=== PATIENT | female | born 1975 | race Caucasian/White ===

== ENCOUNTER 2016-04-30 16:35 | Inpatient (IN) | payer OTHER ==
[2016-04-30] MEDS ORDERED: SODIUM CHLORIDE 0.9% 2,000 ML IV STA (16:53)
[2016-04-30] MEDS ORDERED: KETOROLAC 30 MG/ML 1 ML VIAL IVP STA ×2 (16:55→18:24)
[2016-04-30] MEDS ORDERED: METOCLOPRAMIDE 5 MG/ML 2 ML VIAL IVP STA ×2 (16:55→18:24)
--- NOTE | 2016-04-30 16:57 | ED ---
Recheck HPI - General Chief Complaint: Recheck/Abnormal Lab/Rx Stated Complaint: DKA - Fall Time Seen by Provider: 04/30/16 16:46 Source: patient, RN notes reviewed Mode of arrival: wheelchair - History of Present Illness Initial Comments: 41-year-old female presents to the emergency department with a chief complaint of hyperglycemia. Patient states that her sugars have been in 3 or 400 for the past few days. Patient states she's having some left-sided flank pain with this. Patient states she feels very dehydrated as well. Patient states she's had a little bit of nausea with this as well. Patient seen changes in urination. Patient states that she was concerned due to the high sugars and she thinks she may be in DKA. Patient states she has been in and out of DKA many times. Patient states they have been trying insulin at home but they cannot seem to bring her glucose down. The patient and family deny any other symptoms at this time. Patient denies any recent fever, chills, shortness of breath, chest pain, back pain, abdominal pain, vomiting, numbness or tingling, dysuria or hematuria, constipation or diarrhea, headaches or visual changes, or any other current symptoms. - Related Data Home Medications Medication Instructions Recorded Confirmed HYDROcodone/APAP 10-325MG [[place] 1 tab PO Q4HR PRN 12/26/15 04/30/16 10-325] Insulin Aspart [NovoLOG] See Protocol SQ AC-TID 12/26/15 04/30/16 metFORMIN HCL 1,000 mg PO BID 12/26/15 04/30/16 traZODone HCL [Desyrel] 100 mg PO HS 12/26/15 04/30/16 ALPRAZolam [Xanax] 2 mg PO BID PRN 04/19/16 04/30/16 DULoxetine HCL [Cymbalta] 60 mg PO DAILY 04/19/16 04/30/16 Gabapentin [Neurontin] 900 mg PO BID 04/19/16 04/30/16 Insulin Detemir [Levemir] 30 unit SQ HS 04/19/16 04/30/16 Cyanocobalamin [Vitamin B-12] 500 mcg PO DAILY 04/30/16 04/30/16 Hydrocortisone Suppository 25 mg RECTAL DAILY 04/30/16 04/30/16 [Anusol-Hc] Liraglutide [Victoza 2-Jay] 1.2 mg SQ DAILY 04/30/16 04/30/16 Minocycline [Minocin] 100 mg PO DAILY 04/30/16 04/30/16 Mupirocin 2% Oint [Bactroban 2% 1 applic TOPICAL TID 04/30/16 04/30/16 Oint] Naproxen [Naprosyn] 500 mg PO Q12HR 04/30/16 04/30/16 Omeprazole 40 mg PO DAILY 04/30/16 04/30/16 clonazePAM [KlonoPIN] 2 mg PO BID 04/30/16 04/30/16 fentaNYL 25MCG/HR PATCH [Duragesic 1 patch TRANSDERM Q72H PRN 04/30/16 04/30/16 25MCG/HR] oxyCODONE-APAP 10-325MG [Percocet 1 tab PO Q4H PRN 04/30/16 04/30/16 10-325 mg] Allergies Allergy/AdvReac Type Severity Reaction Status Date / Time venom-honey bee Allergy Anaphylaxis Verified 04/30/16 17:22 erythromycin base AdvReac Rash/Hives Verified 04/30/16 17:22 Penicillins AdvReac Rash/Hives Verified 04/30/16 17:22 Review of Systems ROS Statement: Those systems with pertinent positive or pertinent negative responses have been documented in the HPI. ROS Other: All systems not noted in ROS Statement are negative. 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 She is normally independent. She is a . Smoking Status: Former smoker Past Alcohol Use History: None Reported Additional Past Alcohol Use History / Comment(s): Pt states she only smoked for a couple years [id number]. Past Drug Use History: None Reported - Past Family History Mother Family Medical History: No Reported History Additional Family Medical History / Comment(s): Mother is healthy and is 70yrs old. Father Family Medical History: CVA/TIA Additional Family Medical History / Comment(s): Father had an dental infection that affected his heart and then caused a CVA. General Exam - General Exam Comments Initial Comments: General: The patient is awake and alert, in no distress, and does not appear acutely ill. Eye: Pupils are equal, round and reactive to light, extra-ocular movements are intact; there is normal conjunctiva bilaterally. No signs of icterus. Ears, nose, mouth and throat: There are moist mucous membranes. Neck: The neck is supple, there is no tenderness. Cardiovascular: There is a regular rate and rhythm. No murmur, rub or gallop is appreciated. Respiratory: Lungs are clear to auscultation, respirations are non-labored, breath sounds are equal. No wheezes, stridor, rales, or rhonchi. Gastrointestinal: Soft, non-distended, non-tender abdomen without masses or organomegaly noted. There is no rebound or guarding present. No CVA tenderness. Bowel sounds are unremarkable. Back: There is no tenderness to palpation in the midline. There is no obvious deformity. No rashes noted. Musculoskeletal: Normal ROM, no tenderness, There is no pedal edema. There is no calf tenderness or swelling. Sensation intact. Pulses equal bilaterally 2+. Neurological: CN II-XII intact, There are no obvious motor or sensory deficits. Coordination appears grossly intact. Speech is normal. Skin: Skin is warm and dry and no rashes or lesions are noted. Psychiatric: Cooperative, appropriate mood & affect, normal judgment. Course Vital Signs 04/30/16 16:38 Temperature 99.4 F Pulse Rate 124 H Respiratory 22 Rate Blood Pressure 123/73 O2 Sat by Pulse 99 Oximetry Medical Decision Making - Medical Decision Making 41-year-old female presents to the emergency department with a chief complaint of hyperglycemia. At this time patient is found to be acetone positive an elevated gap of 24. At this time we will admit the patient. We'll start the insulin protocol on the patient. We did discuss this with the patient and she is in agreement with the plan. Patient does have an elevated However her glucose is low most likely from the insulin family did give outpatient we. We did discuss that we will be starting D5 on the patient and we will start of a lower insulin drip rate to care for the patient's CK. The patient and family are in agreement with the plan. - Lab Data Result diagrams: 04/30/16 17:55 04/30/16 17:55 Lab Results 04/30/16 04/30/16 04/30/16 Range/Units 17:55 17:55 17:55 WBC 9.6 (3.8-10.6) k/uL RBC 5.46 H (3.80-5.40) m/uL Hgb 14.0 (11.4-16.0) gm/dL Hct 45.3 (34.0-46.0) % MCV 83.0 (80.0-100.0) fL MCH 25.7 (25.0-35.0) pg MCHC 30.9 L (31.0-37.0) g/dL RDW 14.5 (11.5-15.5) % Plt Count 439 (150-450) k/uL Neutrophils % 76 % Lymphocytes % 13 % Monocytes % 9 % Eosinophils % 0 % Basophils % 0 % Neutrophils # 7.3 (1.3-7.7) k/uL Lymphocytes # 1.3 (1.0-4.8) k/uL Monocytes # 0.8 (0-1.0) k/uL Eosinophils # 0.0 (0-0.7) k/uL Basophils # 0.0 (0-0.2) k/uL Hypochromasia Moderate Poikilocytosis Slight Sodium 139 (137-145) mmol/L Potassium 4.5 (3.5-5.1) mmol/L Chloride 106 (98-107) mmol/L Carbon Dioxide 9 L* (22-30) mmol/L Anion Gap 24 mmol/L BUN 20 H (7-17) mg/dL Creatinine 0.52 (0.52-1.04) mg/dL Est GFR (MDRD) Af Amer >60 (>60 ml/min/1.73 sqM) Est GFR (MDRD) Non-Af >60 (>60 ml/min/1.73 sqM) Glucose 281 H (74-99) mg/dL Plasma Lactic Acid [place] 1.2 (0.7-2.0) mmol/L Calcium 9.6 (8.4-10.2) mg/dL Phosphorus 1.7 L (2.5-4.5) mg/dL Magnesium 2.2 (1.6-2.3) mg/dL Total Bilirubin 0.9 (0.2-1.3) mg/dL AST 22 (14-36) U/L ALT 30 (9-52) U/L Alkaline Phosphatase 97 (38-126) U/L Total Protein 8.4 H (6.3-8.2) g/dL Albumin 5.0 (3.5-5.0) g/dL Lipase 515 H (23-300) U/L Acetone, Qual Positive (Negative) Disposition Clinical Impression: DKA (diabetic ketoacidoses), Diabetes mellitus type 1 Disposition: ADMITTED IP TO THIS [facility] Condition: Stable Time of Disposition: 18:46 Decision Date: 04/30/16 Decision Time: 18:46
[2016-04-30 18:11] LABS: Basophils % (A) 0 %; CH 26.7; CHCM 32.4; Eosinophils % (A) 0 %; HCT 45.3 % (34.0-46.0); HDW 3.81; Hypochromasia Moderate; Luc % (Auto) 2; Lymphocytes # (A) 1.3 k/uL (1.0-4.8); Lymphocytes % (A) 13 %; MCH 25.7 pg (25.0-35.0); MCHC 30.9 g/dL (31.0-37.0); Mean Platelet Volume 7.1; Monocytes # (A) 0.8 k/uL (0-1.0); Monocytes % (A) 9 %; Neutrophils # (A) 7.3 k/uL (1.3-7.7); Neutrophils % (A) 76 %; Poikilocytosis Slight; RBC 5.46 m/uL (3.80-5.40); RDW 14.5 % (11.5-15.5); WBC 9.6 k/uL (3.8-10.6); WBC (Perox) 8.82
[2016-04-30 18:19] LABS: ALT 30 U/L (9-52); AST 22 U/L (14-36); Alkaline Phosphatase 97 U/L (38-126); Anion Gap 24 mmol/L; Blood Urea Nitrogen 20 mg/dL (7-17); Calcium 9.6 mg/dL (8.4-10.2); Chloride 106 mmol/L (98-107); Glucose 281 mg/dL (74-99); Magnesium 2.2 mg/dL (1.6-2.3); Non-African American GFR(MDRD) >60 (>60 ml/min/1.73 sqM); Phosphorous 1.7 mg/dL (2.5-4.5); Potassium 4.5 mmol/L (3.5-5.1); Sodium 139 mmol/L (137-145); Total Bilirubin 0.9 mg/dL (0.2-1.3); Total Protein 8.4 g/dL (6.3-8.2)
[2016-04-30 18:22] LABS: Carbon Dioxide 9 mmol/L (22-30)
[2016-04-30] MEDS ORDERED: ALPRAZolam 0.5 MG TAB PO PRN (18:36)
[2016-04-30] MEDS ORDERED: HYDROcodone/APAP 10-325MG 1 EACH TAB PO PRN (18:36)
[2016-04-30] MEDS ORDERED: INSULIN REGULAR 100 UNIT in SODIUM CHLORIDE 0.9% 100 ML IV SCH ×4 (18:45)
[2016-04-30] MEDS: SODIUM CHLORIDE 0.9% 1,000 ML IV SCH ×2 (19:06→21:53)
[2016-04-30 20:39] LABS: Glucose,Whole Blood 248 mg/dL (75-99)
[2016-04-30] MEDS: MUPIROCIN 2% OINT 22 GM TUBE TOPICAL SCH (21:13)
[2016-04-30] MEDS: D5-0.45% NACL WITH KCL 20MEQ/L 1,000 ML IV SCH (21:13)
[2016-04-30] MEDS: traZODone HCL 100 MG TAB PO SCH (21:14)
[2016-04-30] MEDS: metFORMIN 500 MG TAB PO SCH (21:14)
[2016-04-30] MEDS: GABAPENTIN 300 MG CAP PO SCH (21:15)
[2016-04-30] MEDS: NAPROXEN 250 MG TAB PO SCH (21:15)
[2016-04-30 21:45] LABS: Glucose,Whole Blood 245 mg/dL (75-99)
[2016-04-30] MEDS: clonazePAM 1 MG TAB PO SCH (21:51)
[2016-04-30] MEDS: oxyCODONE-APAP 10-325MG 1 EACH TAB PO PRN (22:18)
[2016-04-30 23:03] LABS: Anion Gap 20 mmol/L; Blood Urea Nitrogen 15 mg/dL (7-17); Chloride 113 mmol/L (98-107); Glucose 247 mg/dL (74-99); Non-African American GFR(MDRD) >60 (>60 ml/min/1.73 sqM); Potassium 3.3 mmol/L (3.5-5.1); Sodium 142 mmol/L (137-145)
[2016-04-30 23:06] VITALS: BMI 23.1
[2016-04-30 23:13] LABS: Glucose,Whole Blood 228 mg/dL (75-99)
[2016-04-30 23:15] LABS: Carbon Dioxide 9 mmol/L (22-30)
[2016-04-30 23:16] LABS: Phosphorous 0.9 mg/dL (2.5-4.5)
[2016-05-01 00:28] LABS: Glucose,Whole Blood 243 mg/dL (75-99)
[2016-05-01 01:30] LABS: Glucose,Whole Blood 271 mg/dL (75-99)
[2016-05-01] MEDS: POTASSIUM PHOSPHATE 10 MMOL in SODIUM CHLORIDE 0.9% 250 ML IV SCH ×3 (02:43→05:08)
[2016-05-01 02:48] LABS: Glucose,Whole Blood 207 mg/dL (75-99)
[2016-05-01 03:17] LABS: Anion Gap 9 mmol/L; Blood Urea Nitrogen 17 mg/dL (7-17); Carbon Dioxide 14 mmol/L (22-30); Chloride 116 mmol/L (98-107); Glucose 219 mg/dL (74-99); Non-African American GFR(MDRD) >60 (>60 ml/min/1.73 sqM); Phosphorous 1.3 mg/dL (2.5-4.5); Potassium 3.2 mmol/L (3.5-5.1); Sodium 139 mmol/L (137-145)
[2016-05-01 03:20] LABS: Partial Thromboplastin Time 22.3 sec (22.0-30.0); Prothrombin Time 10.2 sec (9.0-12.0)
[2016-05-01 04:35] LABS: Glucose,Whole Blood 115 mg/dL (75-99)
[2016-05-01] MEDS: D5-0.45% NACL WITH KCL 20MEQ/L 1,000 ML IV SCH ×2 (04:36→08:24)
[2016-05-01 05:08] LABS: Glucose,Whole Blood 121 mg/dL (75-99)
[2016-05-01] MEDS: SODIUM CHLORIDE 0.9% 1,000 ML IV SCH ×2 (05:09→20:19)
[2016-05-01 06:21] LABS: Glucose,Whole Blood 120 mg/dL (75-99)
[2016-05-01 07:09] LABS: Glucose,Whole Blood 128 mg/dL (75-99)
[2016-05-01 08:06] LABS: Glucose,Whole Blood 142 mg/dL (75-99)
[2016-05-01] MEDS: PANTOPRAZOLE 40 MG TABLET PO SCH (08:24)
[2016-05-01] MEDS: metFORMIN 500 MG TAB PO SCH ×2 (08:25→21:19)
[2016-05-01] MEDS: GABAPENTIN 300 MG CAP PO SCH ×2 (08:25→21:19)
[2016-05-01] MEDS: NAPROXEN 250 MG TAB PO SCH ×2 (08:26→21:19)
[2016-05-01] MEDS: DULoxetine HCL 60 MG CAPSULE.DR PO SCH (08:26)
[2016-05-01] MEDS: MINOCYCLINE 50 MG CAP PO SCH (08:27)
[2016-05-01] MEDS: clonazePAM 1 MG TAB PO SCH ×2 (08:30→21:14)
[2016-05-01 09:12] LABS: Glucose,Whole Blood 186 mg/dL (75-99)
[2016-05-01] MEDS: HYDROCORTISONE SUPPOSITORY 25 MG SUPP RECTAL SCH (09:30)
[2016-05-01] MEDS: oxyCODONE-APAP 10-325MG 1 EACH TAB PO PRN ×3 (09:35→21:19)
[2016-05-01] MEDS: MUPIROCIN 2% OINT 22 GM TUBE TOPICAL SCH ×3 (09:46→21:20)
[2016-05-01 10:14] LABS: Glucose,Whole Blood 228 mg/dL (75-99)
[2016-05-01] MEDS ORDERED: Potassium Replacement Protocol 1 EACH MISC MISCELLANE PRN (11:06)
[2016-05-01 11:14] LABS: Appearance,Urine Cloudy (Clear); Bacteria,Urine Rare /hpf; Bilirubin,Urine Negative (Negative); Glucose,Urine (UA) 4+ (Negative); Leukocyte Esterase,Urine Moderate (Negative); Mucus,Urine Rare /hpf; Nitrite,Urine Negative (Negative); Particle Count 3657; Protein,Urine Trace (Negative); RBC,Urine 16 /hpf (0-5); Specific Gravity,Urine 1.009 (1.001-1.035); Squamous Epithelial Cell,Urine 4 /hpf (0-4); UA Billing (MACRO vs. MICRO) MICRO; Urobilinogen,Urine <2.0 mg/dL (<2.0); WBC,Urine 9 /hpf (0-5)
[2016-05-01 11:17] LABS: Glucose,Whole Blood 292 mg/dL (75-99)
[2016-05-01 11:26] LABS: Ketones,Urine 3+ (Negative)
[2016-05-01] MEDS ORDERED: MELATONIN 5 MG TABLET PO PRN (11:41)
[2016-05-01] MEDS ORDERED: POTASSIUM CHLORIDE ER 20 MEQ TAB.ER PO SCH ×2 (12:00→13:00)
[2016-05-01] MEDS ORDERED: INSULIN GLARGINE 100 UNIT/ML 10 ML VIAL SQ SCH ×2 (12:00→21:00)
[2016-05-01 12:47] LABS: Glucose,Whole Blood 386 mg/dL (75-99)
[2016-05-01] MEDS: INSULIN LISPRO (humaLOG) 300 UNIT/3 ML VIAL SQ SCH ×5 (13:36→21:24)
[2016-05-01] MEDS: CYANOCOBALAMIN 500 MCG TAB PO SCH (13:38)
[2016-05-01] MEDS: LACTATED RINGERS 1,000 ML IV SCH ×2 (13:41→21:07)
--- NOTE | 2016-05-01 14:28 | HP ---
DATE OF ADMISSION: 04/30/2016 Patient came to emergency department with hyperglycemia and believe patient had DKA because of her fruity smell and the patient does recognize those symptoms, fruity breath smell and patient came to ER because of that. The patient is actually found to be in DKA with elevated blood sugars and anion gap of 20. The patient was started on IV insulin and patient underwent the whole DK protocol with correction of electrolytes and the patient anion gap resolved and patient is being transferred to ( ) subcutaneous insulin at this point of time. Patient was started on diet and patient's DKA precipitating factor appears to be psychosocial stressors. Patient has been under a lot of stress and has been actually crying because she appears to be depressed, has not been taking her duloxetine. Patient had her close friend's because of which patient is quite depressed and denied any suicidal ideations at this point of time and denied any homicidal ideations either. Patient is complaining of multiple musculoskeletal pains, although patient does not have any signs or symptoms of sepsis. The patient denied any dysuria. Patient was having abdominal pain, nausea, vomiting yesterday, which resolved at this point of time. Abdominal pain is epigastric in nature. Secondary to DKA which resolved and patient states she has symptoms of SLE and she feels like SLE is coming back as she is under a lot of stress. Patient has multiple musculoskeletal pains. I believe she is a bit exaggerating her musculoskeletal pains though. Beyond that patient does not have any cough, runny nose, and patient is being transition to insulin. The patient is tachycardic and she states she is always tachycardic and patient will be continued on IV fluids today in the form of lactated Ringer's because of elevated chloride. Patient will transferred out of ICU. Possibility of discharge tomorrow. We will go ahead and start on Lantus today and continue on Levemir tomorrow. Patient will be started back on her home dose of Levemir tomorrow. REVIEW OF SYSTEMS: CONSTITUTIONAL: No fever, no malaise, no fatigue. HEENT: No recent visual problems or hearing problems. Denied any sore throat. CARDIOVASCULAR: No chest pain, orthopnea, PND, no palpitations, no syncope. PULMONARY: No shortness of breath, no cough, no hemoptysis. GASTROINTESTINAL: as described in HPI. NEUROLOGICAL: No headaches, no weakness, no numbness. HEMATOLOGICAL: Denies any bleeding or petechiae. GENITOURINARY: Denies any burning micturition, frequency, or urgency. MUSCULOSKELETAL/RHEUMATOLOGICAL: as described in HPI. ENDOCRINE: as described in HPI. The rest of the 14 point review of systems is negative. Home medications include: 1. Hydrocortisone. 2. Acetaminophen. 3. ( ). 4. Metformin. 5. Trazodone. 6. Alprazolam. 7. Duloxetine. 8. Gabapentin. 9. Levemir. 10. Cyanocobalamin. 11. Hydrocortisone. 12. ( ). 13. Victoza. 14. Minocycline. 15. ( ). 16. Naproxen. 17. Omeprazole. 18. Clonazepam. 19. Fentanyl patch. 20. Oxycodone. 21. Acetaminophen. ALLERGIES: ALLERGIC TO BEE VENOM, ERYTHROMYCIN, PENICILLINS. PAST MEDICAL HISTORY: Significant for diabetes mellitus, insulin-dependent diabetes mellitus type 1, previous DKA, chronic low back pain, questionable history of SLE as per the patient and patient is also on ( ), hemorrhoids, gastroesophageal reflux disease, severe depression. SOCIAL HISTORY: Former smoker. Denied any alcohol abuse or any drug abuse. FAMILY HISTORY: Mother is healthy and father had CVA/TIA. PHYSICAL EXAMINATION: VITAL SIGNS: Temperature 98.2, pulse of 99, earlier it was 110. Blood pressure is 101/61, saturating at 100% on room air. GENERAL: The patient is alert and oriented x3, not in any acute distress. Well developed, well nourished. HEENT: Pupils are round and equally reacting to light. EOMI. No scleral icterus. No conjunctival pallor. Normocephalic, atraumatic. No pharyngeal erythema. No thyromegaly. CARDIOVASCULAR: S1 and S2 present. No murmurs, rubs, or gallops. PULMONARY: Chest is clear to auscultation, no wheezing or crackles. ABDOMEN: Soft, nontender, nondistended, normoactive bowel sounds. No palpable organomegaly. MUSCULOSKELETAL: No joint swelling or deformity. EXTREMITIES: No cyanosis, clubbing, or pedal edema. NEUROLOGICAL: Gross neurological examination did not reveal any focal deficits. SKIN: No rashes. Some bony point tenderness. LABORATORY DATA: Multiple labs. Urine looks a little bit abnormal but the patient does not have any symptoms of urinary tract infection, does have 9 WBC, obviously trace protein and 3+ glucose and 3+ ketones and when she came in her anion gap was 20 now around 9, bicarbonate improved from 9 to 14, partly bicarbonate is still low because of hyperchloremia. Blood glucose is okay. Phosphorus is 1.3, potassium supplementation is 3.6. Lipase is 515, nonspecific elevation. ASSESSMENT AND PLAN: 1. Diabetes mellitus with diabetic ketoacidosis, improved ketoacidosis for management as mentioned above. 2. Gastroesophageal reflux disease. 3. Lupus history. 4. Hemorrhoids. 5. Bilateral knee replacement surgery. 6. Anion gap metabolic acidosis secondary to diabetic ketoacidosis. 7. Type 1 diabetes mellitus. PLAN: As mentioned in the interval history. Patient has asymptomatic bacteriuria which does not warrant any antibiotics. Patient probably can be discharged tomorrow. We will watch her on IV fluids today. Patient's primary care physician is Dr. Pepito Song.
[2016-05-01 17:38] LABS: Glucose,Whole Blood 190 mg/dL (75-99)
[2016-05-01 18:34] LABS: Hemoglobin A1C 13.4 % (4.2-6.1)
[2016-05-01] MEDS: MORPHINE SULFATE 4 MG/ML SYRINGE IVP PRN (19:42)
[2016-05-01] MEDS: traZODone HCL 100 MG TAB PO SCH (21:19)
[2016-05-01 21:43] LABS: Glucose,Whole Blood 232 mg/dL (75-99)
[2016-05-01] MEDS: LORazepam 2 MG/ML SYRINGE IV PRN (23:12)
[2016-05-02] MEDS: MORPHINE SULFATE 4 MG/ML SYRINGE IVP PRN ×3 (00:26→15:07)
[2016-05-02] MEDS: LACTATED RINGERS 1,000 ML IV SCH ×2 (05:08→11:40)
[2016-05-02 07:29] LABS: Glucose,Whole Blood 191 mg/dL (75-99)
[2016-05-02] MEDS ORDERED: NON-FORMULARY DRUG (Liraglutide [Victoza 2-Pak] 1.2 MG) SQ SCH (09:00)
[2016-05-02 10:25] LABS: Glucose,Whole Blood 175 mg/dL (75-99)
[2016-05-02] MEDS: MUPIROCIN 2% OINT 22 GM TUBE TOPICAL SCH (10:25)
[2016-05-02] MEDS: GABAPENTIN 300 MG CAP PO SCH (10:25)
[2016-05-02] MEDS: MINOCYCLINE 50 MG CAP PO SCH (10:25)
[2016-05-02] MEDS: NAPROXEN 250 MG TAB PO SCH (10:25)
[2016-05-02] MEDS: metFORMIN 500 MG TAB PO SCH (10:26)
[2016-05-02] MEDS: DULoxetine HCL 60 MG CAPSULE.DR PO SCH (10:26)
[2016-05-02] MEDS: INSULIN LISPRO (humaLOG) 300 UNIT/3 ML VIAL SQ SCH ×4 (10:26→12:51)
[2016-05-02] MEDS: PANTOPRAZOLE 40 MG TABLET PO SCH (10:26)
[2016-05-02] MEDS: CYANOCOBALAMIN 500 MCG TAB PO SCH (10:26)
[2016-05-02 10:34] LABS: Anion Gap 7 mmol/L; Blood Urea Nitrogen 10 mg/dL (7-17); Calcium 8.1 mg/dL (8.4-10.2); Carbon Dioxide 22 mmol/L (22-30); Chloride 110 mmol/L (98-107); Glucose 200 mg/dL (74-99); Non-African American GFR(MDRD) >60 (>60 ml/min/1.73 sqM); Potassium 3.4 mmol/L (3.5-5.1); Sodium 139 mmol/L (137-145)
[2016-05-02 10:35] LABS: Basophils % (A) 1 %; CH 26.2; CHCM 32.1; Eosinophils # (A) 0.1 k/uL (0-0.7); Eosinophils % (A) 2 %; HCT 30.8 % (34.0-46.0); HDW 3.87; Hypochromasia Moderate; Luc # (Auto) 0.16; Luc % (Auto) 3; Lymphocytes # (A) 2.4 k/uL (1.0-4.8); Lymphocytes % (A) 46 %; MCH 26.2 pg (25.0-35.0); MCHC 31.9 g/dL (31.0-37.0); MCV 82.2 fL (80.0-100.0); Mean Platelet Volume 7.5; Monocytes # (A) 0.4 k/uL (0-1.0); Monocytes % (A) 7 %; Neutrophils # (A) 2.2 k/uL (1.3-7.7); Neutrophils % (A) 41 %; Poikilocytosis Slight; RBC 3.75 m/uL (3.80-5.40); RDW 14.8 % (11.5-15.5); WBC 5.3 k/uL (3.8-10.6); WBC (Perox) 5.31
[2016-05-02 10:36] LABS: HGB 9.8 gm/dL (11.4-16.0)
[2016-05-02] MEDS: HYDROCORTISONE SUPPOSITORY 25 MG SUPP RECTAL SCH (10:40)
[2016-05-02] MEDS: clonazePAM 1 MG TAB PO SCH (10:40)
[2016-05-02] MEDS ORDERED: Potassium Replacement Protocol 1 EACH MISC MISCELLANE PRN (10:41)
[2016-05-02] MEDS: oxyCODONE-APAP 10-325MG 1 EACH TAB PO PRN ×2 (10:53→15:07)
[2016-05-02 11:56] LABS: Glucose,Whole Blood 151 mg/dL (75-99)
[2016-05-02] MEDS: POTASSIUM CHLORIDE ER 20 MEQ TAB.ER PO SCH ×2 (12:42→12:43)
[2016-05-02] MEDS: LORazepam 2 MG/ML SYRINGE IV PRN ×2 (12:49→16:03)
[2016-05-02 15:00] VITALS: BP 110/64; PULSE 106; RESP 16; TEMP 98
[2016-05-02] MEDS ORDERED: INSULIN DETEMIR 100 UNIT/ML 10 ML VIAL SQ SCH (16:00)
--- NOTE | 2016-05-03 19:16 | DS ---
DATE OF ADMISSION: 04/30/2016 DATE OF DISCHARGE: 05/02/2016 Patient was admitted with DKA. Improved symptoms. ( ) and patient is severely depressed because of ( ) although patient is not suicidal. I will resume her duloxetine and patient will need to follow with Psychiatry as an outpatient. Patient was seen and examined on the day of discharge. Vitals are stable. GENERAL: The patient is alert and oriented x3, not in any acute distress. Well developed, well nourished. HEENT: Pupils are round and equally reacting to light. EOMI. No scleral icterus. No conjunctival pallor. Normocephalic, atraumatic. No pharyngeal erythema. No thyromegaly. CARDIOVASCULAR: S1 and S2 present. No murmurs, rubs, or gallops. PULMONARY: Chest is clear to auscultation, no wheezing or crackles. ABDOMEN: Soft, nontender, nondistended, normoactive bowel sounds. No palpable organomegaly. MUSCULOSKELETAL: No joint swelling or deformity. EXTREMITIES: No cyanosis, clubbing, or pedal edema. NEUROLOGICAL: Gross neurological examination did not reveal any focal deficits. SKIN: No rashes. FINAL DIAGNOSES: 1. Uncontrolled diabetes mellitus with diabetic ketoacidosis. 2. Gastroesophageal reflux disease. 3. History of lupus. 4. Chronic pain syndrome. 5. Anion gap metabolic acidosis secondary to diabetic ketoacidosis. 6. Severe depression. Please refer to my depart summary for further details of discharge medications. Activity as tolerated. Diabetic 2000-calorie diet. Follow up with Dr. Horn, her primary care physician, in 3 to 7 days. Follow up with Psychiatry as mentioned above. Spent greater than 35 minutes in total discharge process.
== END 2016-05-02 17:06 | disposition home or self-care (01) | DRG 638 ==
LOC: EC 16:35 → 6ICU 18:35 → 3SUR 05-01 12:10
PROVIDERS: ADMIT Internal Medicine; ATTEND Internal Medicine
DX: E10.10 Type 1 diabetes mellitus with ketoacidosis without coma (principal); F32.2 Major depressive disorder, single episode, severe without psychotic features; E87.8 Other disorders of electrolyte and fluid balance, not elsewhere classified; M32.9 Systemic lupus erythematosus, unspecified; E86.0 Dehydration; G89.4 Chronic pain syndrome; F43.10 Post-traumatic stress disorder, unspecified; K21.9 Gastro-esophageal reflux disease without esophagitis; R10.13 Epigastric pain; R00.0 Tachycardia, unspecified; K64.9 Unspecified hemorrhoids; R82.90 Unspecified abnormal findings in urine; R11.2 Nausea with vomiting, unspecified; M54.5 Low back pain; M19.90 Unspecified osteoarthritis, unspecified site; Z87.891 Personal history of nicotine dependence; Z82.3 Family history of stroke; Z96.653 Presence of artificial knee joint, bilateral; Z79.4 Long term (current) use of insulin; Z79.84 Long term (current) use of oral hypoglycemic drugs; Z79.2 Long term (current) use of antibiotics; Z79.1 Long term (current) use of non-steroidal anti-inflammatories (NSAID); Z79.891 Long term (current) use of opiate analgesic; Z79.52 Long term (current) use of systemic steroids; Z79.899 Other long term (current) drug therapy; Z88.0 Allergy status to penicillin; Z87.820 Personal history of traumatic brain injury; Z88.1 Allergy status to other antibiotic agents; Z91.030 Bee allergy status; Z63.9 Problem related to primary support group, unspecified
CPT/HCPCS: 36415; 80048; 80051; 80053; 81001; 82009; 82565; 82947; 83036; 83605; 83690; 83735; 84100; 84132; 84520; 85025; 85610; 85730; 96361; 96374; 96375; 99285

== ENCOUNTER 2016-07-03 17:18 | Inpatient (IN) | payer OTHER ==
[2016-07-03] MEDS ORDERED: SODIUM CHLORIDE 0.9% 1,000 ML IV STA ×2 (17:41→18:48)
[2016-07-03] MEDS ORDERED: LORazepam 2 MG/ML SYRINGE IV STA (17:41)
--- NOTE | 2016-07-03 17:44 | ED ---
General Adult HPI - General Chief complaint: Nausea/Vomiting/Diarrhea Stated complaint: vomiting Time Seen by Provider: 07/03/16 17:34 Source: patient Mode of arrival: ambulatory Limitations: no limitations - History of Present Illness Initial comments: Patient is a 41-year-old female with history of IDDM presenting with hyperglycemia and vomiting. Patient states she was fine yesterday. Patient woke up this morning with her glucose 400. She gave herself NovoLog which brought her glucose down to 217. She states she gave her self 14 units and then later 11 units of NovoLog. Patient states she first noticed the hyperglycemia and then she started having vomiting. Patient vomited several times for which most recently she noted red into vomit. She denies sick contacts, antibiotics or recent travel. Patient does have a history of DKA in the last year. - Related Data Home Medications Medication Instructions Recorded Confirmed Insulin Aspart [NovoLOG] See Protocol SQ AC-TID 12/26/15 07/03/16 metFORMIN HCL 1,000 mg PO BID 12/26/15 07/03/16 traZODone HCL [Desyrel] 100 mg PO HS 12/26/15 07/03/16 Gabapentin [Neurontin] 900 mg PO BID 04/19/16 07/03/16 Insulin Detemir [Levemir] 30 unit SQ HS 04/19/16 07/03/16 Cyanocobalamin [Vitamin B-12] 500 mcg PO DAILY 04/30/16 07/03/16 Minocycline [Minocin] 100 mg PO DAILY 04/30/16 07/03/16 Mupirocin 2% Oint [Bactroban 2% 1 applic TOPICAL TID 04/30/16 07/03/16 Oint] Naproxen [Naprosyn] 500 mg PO Q12HR 04/30/16 07/03/16 Omeprazole 40 mg PO DAILY 04/30/16 07/03/16 clonazePAM [KlonoPIN] 2 mg PO BID 04/30/16 07/03/16 oxyCODONE-APAP 10-325MG [Percocet 1 tab PO Q4H PRN 04/30/16 07/03/16 10-325 mg] Previous Rx's Medication Instructions Recorded DULoxetine HCL [Cymbalta] 60 mg PO DAILY #30 capsule. 05/01/16 Allergies Allergy/AdvReac Type Severity Reaction Status Date / Time venom-honey bee Allergy Anaphylaxis Verified 07/03/16 18:08 erythromycin base AdvReac Rash/Hives Verified 07/03/16 18:08 Penicillins AdvReac Rash/Hives Verified 07/03/16 18:08 Review of Systems ROS Statement: Those systems with pertinent positive or pertinent negative responses have been documented in the HPI. Constitutional: No fever and no chills. HENT: No congestion, no rhinorrhea and no sore throat. Eyes: No discharge and no redness. Respiratory: No cough and no shortness of breath. Cardiovascular: No chest pain and no palpitations. Gastrointestinal: +nausea, +vomiting, +abdominal pain and no diarrhea. Genitourinary: No dysuria and no hematuria. Musculoskeletal: No back pain and no arthralgias. Skin: No pallor and no rash. Neurological: No dizziness and No headaches. ROS Other: All systems not noted in ROS Statement are negative. 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 She is normally independent. She is a . Smoking Status: Former smoker Past Alcohol Use History: None Reported Additional Past Alcohol Use History / Comment(s): Pt states she only smoked for a couple years [id number]. Past Drug Use History: None Reported - Past Family History Mother Family Medical History: No Reported History Additional Family Medical History / Comment(s): Mother is healthy and is 70yrs old. has fibromyalgia Father Family Medical History: CVA/TIA Additional Family Medical History / Comment(s): Father had an dental infection that affected his heart and then caused a CVA. General Exam - General Exam Comments Initial Comments: Constitutional: Patient appears well-developed and well-nourished. Mild distress. Head: Normocephalic and atraumatic. Eyes: Conjunctivae and EOM are normal. Right eye exhibits no discharge. Left eye exhibits no discharge. No scleral icterus. Neck: Normal range of motion. Neck supple. Cardiovascular: Tachycardic. No murmur heard. Pulmonary/Chest: Effort normal and breath sounds normal. No respiratory distress. No wheezes. Abdominal: Soft. No distension. Epigastric tenderness. There is no rebound and no guarding. Musculoskeletal: Normal range of motion. No edema or tenderness. Neurological: Patient alert and oriented to person, place, and time. Skin: Skin is warm and dry. Not diaphoretic. Nursing notes and vitals reviewed. Limitations: no limitations Course Vital Signs 07/03/16 07/03/16 17:23 19:14 Temperature 98.0 F Pulse Rate 99 112 H Respiratory 20 18 Rate Blood Pressure 117/68 140/76 O2 Sat by Pulse 99 95 Oximetry - Reevaluation(s) Reevaluation #1: 07/03/16 19:18 Patient doing better after Ativan. Patient states she has been unable to take her Xanax to the nausea vomiting. Ativan was used for anxiolytic as well as antiemetic. EKG Findings - EKG Comments: EKG Findings:: Rate 88. NSR. No ST-T wave changes. [place] internal normal . QRS interval normal. QTc duration normal. Medical Decision Making - Medical Decision Making Patient is a 41-year-old insulin-dependent diabetic presenting with hyperglycemia and nausea vomiting. Patient self treated at home with a total of 25 units of NovoLog. Patient's glucose at home was 400 for which on presentation she was 209. CBC was unremarkable. BMP showed potassium 3.3, bicarb 20, anion gap 20, glucose 196 unremarkable LFTs and lipase. UA showed ketones, protein, blood, glucose, leuk esterase with 10 urine WBCs for which Levaquin was started for UTI. EKG was unremarkable. Chest x-ray unremarkable. Patient was given IV fluids, Pepcid, Ativan for nausea/vomiting. Patient is a 41-year-old insulin-dependent diabetic with partially treated DKA at home. Patient will be started on D5 half-normal saline with 20 KCl and insulin 0.05 units/kg/hr for an anion gap at 20. Patient was resting comfortably in bed. Course of stay improved. Denies pain. Discussed physical exam and diagnostic tests with patient. Questions answered and patient is agreeable to staying in the hospital. Discussed H&P and pertinent diagnostic tests with admitting physician who agrees with plan and accepts admission of patient. - Lab Data Result diagrams: 07/03/16 17:55 07/03/16 17:55 Lab Results 07/03/16 07/03/16 07/03/16 Range/Units 17:55 17:55 17:55 WBC 5.6 (3.8-10.6) k/uL RBC 5.11 (3.80-5.40) m/uL Hgb 12.6 (11.4-16.0) gm/dL Hct 40.4 (34.0-46.0) % MCV 79.2 L (80.0-100.0) fL MCH 24.7 L (25.0-35.0) pg MCHC 31.2 (31.0-37.0) g/dL RDW 15.2 (11.5-15.5) % Plt Count 379 (150-450) k/uL Neutrophils % 88 % Lymphocytes % 5 % Monocytes % 3 % Eosinophils % 0 % Basophils % 2 % Neutrophils # 5.0 (1.3-7.7) k/uL Lymphocytes # 0.3 L (1.0-4.8) k/uL Monocytes # 0.2 (0-1.0) k/uL Eosinophils # 0.0 (0-0.7) k/uL Basophils # 0.1 (0-0.2) k/uL Hypochromasia Slight Poikilocytosis Slight Sodium 146 H (137-145) mmol/L Potassium 3.3 L (3.5-5.1) mmol/L Chloride 106 (98-107) mmol/L Carbon Dioxide 20 L (22-30) mmol/L Anion Gap 20 mmol/L BUN 12 (7-17) mg/dL Creatinine 0.34 L (0.52-1.04) mg/dL Est GFR (MDRD) Af Amer >60 (>60 ml/min/1.73 sqM) Est GFR (MDRD) Non-Af >60 (>60 ml/min/1.73 sqM) Glucose 209 H (74-99) mg/dL POC Glucose (mg/dL) (75-99) mg/dL POC Glu Tool Design Drafter ID Calcium 9.4 (8.4-10.2) mg/dL Magnesium 1.7 (1.6-2.3) mg/dL Total Bilirubin 0.7 (0.2-1.3) mg/dL AST 18 (14-36) U/L ALT 21 (9-52) U/L Alkaline Phosphatase 79 (38-126) U/L Total Protein 8.1 (6.3-8.2) g/dL Albumin 4.9 (3.5-5.0) g/dL Lipase 78 (23-300) U/L Urine Color Yellow Urine Appearance Clear (Clear) Urine pH 5.5 (5.0-8.0) Ur Specific [place] 1.017 (1.001-1.035) Urine Protein Trace H (Negative) Urine Glucose (UA) 4+ H (Negative) Urine Ketones 4+ H (Negative) Urine Blood Moderate H (Negative) Urine Nitrate Negative (Negative) Urine Bilirubin Negative (Negative) Urine Urobilinogen <2.0 (<2.0) mg/dL Ur Leukocyte Esterase Trace H (Negative) Urine RBC 2 (0-5) /hpf Urine WBC 10 H (0-5) /hpf Ur Squamous Epith Cells 1 (0-4) /hpf Urine Mucus Rare H (None) /hpf Urine HCG, Qual (Not Detectd) Urine Opiates Screen Detected H (NotDetected) Ur Oxycodone Screen Not Detected (NotDetected) Urine Methadone Screen Not Detected (NotDetected) Ur Propoxyphene Screen Not Detected (NotDetected) Ur Barbiturates Screen Not Detected (NotDetected) U Tricyclic Antidepress Not Detected (NotDetected) Ur Phencyclidine Scrn Not Detected (NotDetected) Ur Amphetamines Screen Not Detected (NotDetected) U Methamphetamines Scrn Not Detected (NotDetected) U Benzodiazepines Scrn Detected H (NotDetected) Urine Cocaine Screen Not Detected (NotDetected) U Marijuana (THC) Screen Not Detected (NotDetected) Acetone, Qual Positive (Negative) 07/03/16 07/03/16 Range/Units 17:55 18:22 WBC (3.8-10.6) k/uL RBC (3.80-5.40) m/uL Hgb (11.4-16.0) gm/dL Hct (34.0-46.0) % MCV (80.0-100.0) fL MCH (25.0-35.0) pg MCHC (31.0-37.0) g/dL RDW (11.5-15.5) % Plt Count (150-450) k/uL Neutrophils % % Lymphocytes % % Monocytes % % Eosinophils % % Basophils % % Neutrophils # (1.3-7.7) k/uL Lymphocytes # (1.0-4.8) k/uL Monocytes # (0-1.0) k/uL Eosinophils # (0-0.7) k/uL Basophils # (0-0.2) k/uL Hypochromasia Poikilocytosis Sodium (137-145) mmol/L Potassium (3.5-5.1) mmol/L Chloride (98-107) mmol/L Carbon Dioxide (22-30) mmol/L Anion Gap mmol/L BUN (7-17) mg/dL Creatinine (0.52-1.04) mg/dL Est GFR (MDRD) Af Amer (>60 ml/min/1.73 sqM) Est GFR (MDRD) Non-Af (>60 ml/min/1.73 sqM) Glucose (74-99) mg/dL POC Glucose (mg/dL) 196 H (75-99) mg/dL POC Glu Tool Design Drafter ID Lesly Lee Calcium (8.4-10.2) mg/dL Magnesium (1.6-2.3) mg/dL Total Bilirubin (0.2-1.3) mg/dL AST (14-36) U/L ALT (9-52) U/L Alkaline Phosphatase (38-126) U/L Total Protein (6.3-8.2) g/dL Albumin (3.5-5.0) g/dL Lipase (23-300) U/L Urine Color Urine Appearance (Clear) Urine pH (5.0-8.0) Ur Specific [place] (1.001-1.035) Urine Protein (Negative) Urine Glucose (UA) (Negative) Urine Ketones (Negative) Urine Blood (Negative) Urine Nitrate (Negative) Urine Bilirubin (Negative) Urine Urobilinogen (<2.0) mg/dL Ur Leukocyte Esterase (Negative) Urine RBC (0-5) /hpf Urine WBC (0-5) /hpf Ur Squamous Epith Cells (0-4) /hpf Urine Mucus (None) /hpf Urine HCG, Qual Not Detected (Not Detectd) Urine Opiates Screen (NotDetected) Ur Oxycodone Screen (NotDetected) Urine Methadone Screen (NotDetected) Ur Propoxyphene Screen (NotDetected) Ur Barbiturates Screen (NotDetected) U Tricyclic Antidepress (NotDetected) Ur Phencyclidine Scrn (NotDetected) Ur Amphetamines Screen (NotDetected) U Methamphetamines Scrn (NotDetected) U Benzodiazepines Scrn (NotDetected) Urine Cocaine Screen (NotDetected) U Marijuana (THC) Screen (NotDetected) Acetone, Qual (Negative) Disposition Clinical Impression: DKA (diabetic ketoacidoses), Nausea & vomiting, Urinary tract infection Disposition: ADMITTED IP TO THIS [facility] Decision to Admit Reason: Admit from EC
[2016-07-03] MEDS ORDERED: FAMOTIDINE 20 MG/2 ML VIAL IV STA (17:45)
[2016-07-03 18:08] LABS: Basophils # (A) 0.1 k/uL (0-0.2); Basophils % (A) 2 %; CH 25.7; CHCM 32.6; Eosinophils % (A) 0 %; HCT 40.4 % (34.0-46.0); HDW 3.71; HGB 12.6 gm/dL (11.4-16.0); Hypochromasia Slight; Luc # (Auto) 0.06; Luc % (Auto) 1; Lymphocytes # (A) 0.3 k/uL (1.0-4.8); Lymphocytes % (A) 5 %; MCH 24.7 pg (25.0-35.0); MCHC 31.2 g/dL (31.0-37.0); MCV 79.2 fL (80.0-100.0); Mean Platelet Volume 6.9; Monocytes # (A) 0.2 k/uL (0-1.0); Monocytes % (A) 3 %; Neutrophils % (A) 88 %; Poikilocytosis Slight; RBC 5.11 m/uL (3.80-5.40); RDW 15.2 % (11.5-15.5); WBC 5.6 k/uL (3.8-10.6); WBC (Perox) 5.93
[2016-07-03 18:22] LABS: ALT 21 U/L (9-52); AST 18 U/L (14-36); Alkaline Phosphatase 79 U/L (38-126); Anion Gap 20 mmol/L; Blood Urea Nitrogen 12 mg/dL (7-17); Calcium 9.4 mg/dL (8.4-10.2); Carbon Dioxide 20 mmol/L (22-30); Chloride 106 mmol/L (98-107); Glucose 209 mg/dL (74-99); Magnesium 1.7 mg/dL (1.6-2.3); Non-African American GFR(MDRD) >60 (>60 ml/min/1.73 sqM); Potassium 3.3 mmol/L (3.5-5.1); Sodium 146 mmol/L (137-145); Total Bilirubin 0.7 mg/dL (0.2-1.3); Total Protein 8.1 g/dL (6.3-8.2)
[2016-07-03] MEDS ORDERED: POTASSIUM CHLORIDE ER 20 MEQ TAB.ER PO STA (18:24)
[2016-07-03 18:26] LABS: Glucose,Whole Blood 196 mg/dL (75-99)
[2016-07-03 18:36] LABS: Appearance,Urine Clear (Clear); Bilirubin,Urine Negative (Negative); Glucose,Urine (UA) 4+ (Negative); Leukocyte Esterase,Urine Trace (Negative); Mucus,Urine Rare /hpf; Nitrite,Urine Negative (Negative); PH, Urine 5.5 (5.0-8.0); Particle Count 1871; Protein,Urine Trace (Negative); RBC,Urine 2 /hpf (0-5); Specific Gravity,Urine 1.017 (1.001-1.035); Squamous Epithelial Cell,Urine 1 /hpf (0-4); UA Billing (MACRO vs. MICRO) MICRO; Urobilinogen,Urine <2.0 mg/dL (<2.0); WBC,Urine 10 /hpf (0-5)
[2016-07-03] MEDS ORDERED: LEVOFLOXACIN 500MG-D5W PMX 500 MG in DEXTROSE/WATER 1 100ML.BAG IVPB STA (18:42)
[2016-07-03 18:51] LABS: Ketones,Urine 4+ (Negative)
--- NOTE | 2016-07-03 18:53 | XR ---
EXAMINATION TYPE: XR chest 1V portable DATE OF EXAM: 07/03/2016 6:42 PM COMPARISON: 12/26/2015 HISTORY: Chest pain TECHNIQUE: Single frontal view of the chest is obtained. FINDINGS: Heart and mediastinum are normal. Lungs are clear. Diaphragm is normal. Bony thorax appear s intact. IMPRESSION: Normal chest. No change.
[2016-07-03] MEDS ORDERED: INSULIN REGULAR 100 UNIT in SODIUM CHLORIDE 0.9% 100 ML IV SCH (19:00)
[2016-07-03] MEDS: D5-0.45% NACL WITH KCL 20MEQ/L 1,000 ML IV SCH (19:13)
[2016-07-03 19:58] LABS: Glucose,Whole Blood 186 mg/dL (75-99)
[2016-07-03 20:32] VITALS: BMI 23.0
[2016-07-03 21:02] LABS: Glucose,Whole Blood 212 mg/dL (75-99)
[2016-07-03 21:04] LABS: Anion Gap 15 mmol/L; Blood Urea Nitrogen 8 mg/dL (7-17); Carbon Dioxide 19 mmol/L (22-30); Chloride 108 mmol/L (98-107); Glucose 195 mg/dL (74-99); Non-African American GFR(MDRD) >60 (>60 ml/min/1.73 sqM); Potassium 3.1 mmol/L (3.5-5.1); Sodium 142 mmol/L (137-145)
[2016-07-03] MEDS: ONDANSETRON 4 MG/2 ML VIAL IVP PRN (21:07)
[2016-07-03] MEDS: HYDROmorphone 1 MG/ML 1 ML SYRINGE IVP PRN (21:07)
[2016-07-03] MEDS: POTASSIUM CHLORIDE 10 MEQ in WATER FOR INJECTION 1 100ML.BAG IVPB SCH ×2 (21:07→22:07)
[2016-07-03 21:09] LABS: Phosphorous 0.7 mg/dL (2.5-4.5)
[2016-07-03 22:10] LABS: Glucose,Whole Blood 196 mg/dL (75-99)
[2016-07-03 23:02] LABS: Glucose,Whole Blood 198 mg/dL (75-99)
[2016-07-03] MEDS ORDERED: traZODone HCL 100 MG TAB PO SCH (23:45)
[2016-07-04] MEDS: POTASSIUM CHLORIDE 10 MEQ in WATER FOR INJECTION 1 100ML.BAG IVPB SCH
[2016-07-04 00:11] LABS: Glucose,Whole Blood 236 mg/dL (75-99)
[2016-07-04 00:58] LABS: Glucose,Whole Blood 201 mg/dL (75-99)
[2016-07-04 01:10] LABS: Anion Gap 17 mmol/L; Blood Urea Nitrogen 6 mg/dL (7-17); Carbon Dioxide 17 mmol/L (22-30); Chloride 106 mmol/L (98-107); Glucose 216 mg/dL (74-99); Non-African American GFR(MDRD) >60 (>60 ml/min/1.73 sqM); Potassium 3.2 mmol/L (3.5-5.1); Sodium 140 mmol/L (137-145)
[2016-07-04] MEDS: HYDROmorphone 1 MG/ML 1 ML SYRINGE IVP PRN ×4 (03:06→20:19)
[2016-07-04 03:13] LABS: Glucose,Whole Blood 201 mg/dL (75-99)
[2016-07-04] MEDS: D5-0.45% NACL WITH KCL 20MEQ/L 1,000 ML IV SCH ×4 (03:19→20:15)
[2016-07-04] MEDS: ONDANSETRON 4 MG/2 ML VIAL IVP PRN ×3 (03:19→14:48)
[2016-07-04 04:01] LABS: Glucose,Whole Blood 198 mg/dL (75-99)
[2016-07-04 05:13] LABS: Glucose,Whole Blood 195 mg/dL (75-99)
[2016-07-04 06:15] LABS: Glucose,Whole Blood 177 mg/dL (75-99)
[2016-07-04] MEDS: CYANOCOBALAMIN 500 MCG TAB PO SCH (07:26)
[2016-07-04] MEDS: GABAPENTIN 300 MG CAP PO SCH ×2 (07:26→20:17)
[2016-07-04] MEDS: METOCLOPRAMIDE 5 MG/ML 2 ML VIAL IVP PRN ×3 (07:32→12:37)
[2016-07-04 07:36] LABS: Potassium 3.1 mmol/L (3.5-5.1)
[2016-07-04 07:37] LABS: Glucose,Whole Blood 169 mg/dL (75-99)
[2016-07-04 07:40] LABS: Phosphorous 1.2 mg/dL (2.5-4.5)
[2016-07-04 08:22] LABS: Glucose,Whole Blood 176 mg/dL (75-99)
[2016-07-04] MEDS: PANTOPRAZOLE 40 MG TABLET PO SCH (08:40)
[2016-07-04 09:24] LABS: Glucose,Whole Blood 224 mg/dL (75-99)
[2016-07-04 10:18] LABS: Glucose,Whole Blood 204 mg/dL (75-99)
[2016-07-04 10:51] LABS: Hemoglobin A1C 12.7 % (4.2-6.1)
[2016-07-04 11:19] LABS: Glucose,Whole Blood 184 mg/dL (75-99)
[2016-07-04 11:52] LABS: Glucose,Whole Blood 185 mg/dL (75-99)
[2016-07-04 12:55] LABS: Glucose,Whole Blood 178 mg/dL (75-99)
[2016-07-04 14:08] LABS: Glucose,Whole Blood 191 mg/dL (75-99)
[2016-07-04] MEDS ORDERED: LORazepam 2 MG/ML SYRINGE IM STA (14:53)
[2016-07-04 15:08] LABS: Glucose,Whole Blood 214 mg/dL (75-99)
[2016-07-04 15:59] LABS: Glucose,Whole Blood 214 mg/dL (75-99)
[2016-07-04 17:33] LABS: Glucose,Whole Blood 238 mg/dL (75-99)
[2016-07-04] MEDS: ALPRAZolam 0.5 MG TAB PO SCH (20:17)
[2016-07-04 20:23] LABS: Glucose,Whole Blood 311 mg/dL (75-99)
[2016-07-04] MEDS: INSULIN LISPRO (humaLOG) 300 UNIT/3 ML VIAL SQ SCH (20:29)
[2016-07-04] MEDS: metFORMIN 500 MG TAB PO SCH (20:29)
[2016-07-04] MEDS ORDERED: INSULIN DETEMIR 100 UNIT/ML 10 ML VIAL SQ SCH (21:00)
[2016-07-04] MEDS ORDERED: traZODone HCL 100 MG TAB PO SCH (21:00)
--- NOTE | 2016-07-04 22:11 | HP ---
DATE OF ADMISSION: 07/04/2016 CHIEF COMPLAINT: Mental status changes. HISTORY OF PRESENT ILLNESS: This is the first admission for this 41-year-old white female. She is a . She has diabetes and suddenly it went out of control. She denies any stress, infections, etc. She came to the emergency room in DKA. REVIEW OF SYSTEMS: She has had no neurologic problems, shortness of breath, cough, hemoptysis, heart disease, hematemesis, melena, hematochezia, jaundice, hematuria, frequency, urgency, arthralgias, etc. Past medical history, family history, and personal and social histories are unremarkable and noncontributory otherwise except she has had multiple sclerosis, systemic lupus erythematosus. She has had 10 pregnancies and 5 children with 5 miscarriages. SHE IS ALLERGIC TO PENICILLIN AND ERYTHROMYCIN. PAST SURGICAL HISTORY: She has had procedures on both knees and a . She takes: 1. Insulin. 2. Metformin. 3. Cymbalta. 4. Xanax. 5. Neurontin. 6. Vicodin. She does not smoke. PHYSICAL EXAMINATION: Blood pressure is 142/90 with a pulse of 83, respirations 34, and she is afebrile. GENERAL: She appeared to be in no acute distress. SKIN: Skin color is normal. Skin is warm and dry. Lymph nodes are not enlarged. Head, ears, eyes, nose, mouth, and throat were normal. NECK: Neck veins not distended. Thyroid is not enlarged. CHEST: Clear. CARDIAC: Normal. ABDOMEN: Soft, nontender. EXTREMITIES: Normal. She was admitted to the hospital with diagnoses: 1. Diabetic ketoacidosis. 2. Multiple sclerosis. 3. Systemic lupus erythematosus. PLAN: 1. Bed rest. 2. IV fluids. 3. Diabetic ketoacidosis protocol.
[2016-07-04 22:42] VITALS: RESP 16
[2016-07-05] MEDS: ONDANSETRON 4 MG/2 ML VIAL IVP PRN ×2 (05:35→12:07)
[2016-07-05] MEDS: HYDROmorphone 1 MG/ML 1 ML SYRINGE IVP PRN (05:35)
[2016-07-05 07:25] LABS: Glucose,Whole Blood 81 mg/dL (75-99)
[2016-07-05] MEDS: GABAPENTIN 300 MG CAP PO SCH (08:08)
[2016-07-05] MEDS: ALPRAZolam 0.5 MG TAB PO SCH ×2 (08:08→16:07)
[2016-07-05] MEDS: CYANOCOBALAMIN 500 MCG TAB PO SCH (08:09)
[2016-07-05] MEDS: PANTOPRAZOLE 40 MG TABLET PO SCH (08:09)
[2016-07-05] MEDS: metFORMIN 500 MG TAB PO SCH (08:09)
[2016-07-05] MEDS: INSULIN LISPRO (humaLOG) 300 UNIT/3 ML VIAL SQ SCH ×3 (08:11→17:45)
[2016-07-05] MEDS ORDERED: DULoxetine HCL 60 MG CAPSULE.DR PO SCH (09:00)
--- NOTE | 2016-07-05 10:53 | P.DS ---
Providers Date of admission: 07/04/16 12:09 Expected date of discharge: 07/05/16 Attending physician: Wilber Martinez Primary care physician: Pepito Romero [facility] Course: 41-year-old female who is a history of diabetes presented to the emergency room with a hyperglycemic episode with vomiting. Patient stated that she woke up checked blood sugar was noted to be over 400. Patient gave herself a NovoLog the blood sugar down to 217 patient states she gave herself 14 units and then later gave another 11 units of NovoLog. Patient stated she continued to vomit vomited several times throughout the day. Patient denies sick contacts there's been no recent antibiotic or recent travel. Does have a history of DKA last occurrence one year prior was seen in the emergency room admitted to the services of the attending. Blood sugars were addressed DKA protocol initiated and on the day of discharge patient was felt to be appropriate to proceed with a discharge with the plan the patient will follow-up with her own primary care provider Dr. Pepito romero blood sugars were significantly improved Impression discharge diagnosis Present on admission hyperglycemia with DKA Present on admission nausea vomiting diarrhea likely due to DKA Type 2 diabetes insulin requiring Anxiety depressive disorder nonspecified History of a traumatic brain closed head injury 20 years prior Type 2 diabetes uncontrolled hemoglobin A1c 12.7 Electrolyte abnormality hypokalemic and hypo-magnesium corrected History of previous diabetic ketoacidosis The above dictated assessment and findings were discussed with dr linda Jackson and the plan of care have been dictated as directed. Joceline Laws nurse practitioner acting as a scribe for dr martinez Plan - Discharge Summary Discharge Medication List Insulin Aspart [NovoLOG] See Protocol SQ AC-TID 12/26/15 [History] metFORMIN HCL 1,000 mg PO BID 12/26/15 [History] traZODone HCL [Desyrel] 100 mg PO HS 12/26/15 [History] Gabapentin [Neurontin] 900 mg PO BID 04/19/16 [History] Insulin Detemir [Levemir] 30 unit SQ HS 04/19/16 [History] Cyanocobalamin [Vitamin B-12] 500 mcg PO DAILY 04/30/16 [History] Minocycline [Minocin] 100 mg PO DAILY 04/30/16 [History] Mupirocin 2% Oint [Bactroban 2% Oint] 1 applic TOPICAL TID 04/30/16 [History] Naproxen [Naprosyn] 500 mg PO Q12HR 04/30/16 [History] Omeprazole 40 mg PO DAILY 04/30/16 [History] clonazePAM [KlonoPIN] 2 mg PO BID 04/30/16 [History] oxyCODONE-APAP 10-325MG [Percocet 10-325 mg] 1 tab PO Q4H PRN 04/30/16 [History] DULoxetine HCL [Cymbalta] 60 mg PO DAILY #30 capsule. 05/01/16 [Rx] ALPRAZolam [Xanax] 1 mg PO TID 07/04/16 [History] Follow up Appointment(s)/Referral(s): Ppeito Romero MD [Primary Care Provider] - 1-2 days Patient Instructions/Handouts: Hemoglobin A1c (GEN) Discharge Disposition: HOME SELF-CARE
[2016-07-05] MEDS: POTASSIUM CHLORIDE ER 20 MEQ TAB.ER PO SCH ×2 (12:06→13:52)
[2016-07-05 12:13] LABS: Glucose,Whole Blood 217 mg/dL (75-99)
[2016-07-05] MEDS: oxyCODONE-APAP 10-325MG 1 EACH TAB PO PRN ×2 (12:16→16:11)
--- NOTE | 2016-07-05 14:30 | PN ---
DATE OF SERVICE: 07/05/2016 CHIEF COMPLAINT: BKA, MS and lupus. HISTORY OF PRESENT ILLNESS: This lady is doing better and diet is advanced and she is off the insulin drip. PHYSICAL EXAM: Chest is clear and cardiac exam is normal. The abdomen is soft, nontender. IMPRESSION: 1. Diabetic ketoacidosis. 2. Multiple sclerosis. 3. SLE. PLAN: Probably home today and this will be arranged by the nurse practitioner.
[2016-07-05 16:46] LABS: Glucose,Whole Blood 366 mg/dL (75-99)
[2016-07-05 16:52] VITALS: BP 135/86; PULSE 113; TEMP 98.9
[2016-07-05] MEDS ORDERED: POTASSIUM CHLORIDE ER 20 MEQ TAB.ER PO SCH (21:00)
== END 2016-07-05 18:34 | disposition home or self-care (01) | DRG 638 ==
LOC: EC 17:18 → 5MS5E 19:03 → INTOOBSV 19:03 → OBSVTOIN 07-04 12:09
PROVIDERS: ADMIT Family Medicine; ATTEND Family Medicine
DX: E13.10 Other specified diabetes mellitus with ketoacidosis without coma (principal); N39.0 Urinary tract infection, site not specified; M32.9 Systemic lupus erythematosus, unspecified; E83.42 Hypomagnesemia; E87.6 Hypokalemia; F32.9 Major depressive disorder, single episode, unspecified; F43.10 Post-traumatic stress disorder, unspecified; G35 Multiple sclerosis; K21.9 Gastro-esophageal reflux disease without esophagitis; Z79.4 Long term (current) use of insulin; Z82.3 Family history of stroke; Z79.899 Other long term (current) drug therapy; Z87.891 Personal history of nicotine dependence; Z89.519 Acquired absence of unspecified leg below knee; Z79.84 Long term (current) use of oral hypoglycemic drugs
CPT/HCPCS: 71010; 80051; 80053; 80306; 81001; 81025; 82009; 82565; 82947; 83036; 83690; 83735; 84100; 84132; 84520; 85025; 93005; 96361; 96365; 96366; 96367; 96368; 96375; 96376; 99285

== ENCOUNTER 2016-11-19 16:44 | Inpatient (IN) | payer OTHER ==
[2016-11-19] MEDS ORDERED: KETOROLAC 30 MG/ML 1 ML VIAL IVP STA (17:42)
[2016-11-19] MEDS ORDERED: SODIUM CHLORIDE 0.9% 1,000 ML IV ONE (17:42)
--- NOTE | 2016-11-19 17:54 | ED ---
General Adult HPI - General Chief complaint: Recheck/Abnormal Lab/Rx Stated complaint: Unable to lift right leg Time Seen by Provider: 11/19/16 17:18 Source: patient, RN notes reviewed Mode of arrival: wheelchair Limitations: no limitations - History of Present Illness Initial comments: Patient is a 41-year-old female presents to the emergency room for evaluation. Patient has a history of MS, lupus and diabetes type 1. Patient is insulin- dependent. Patient states over the past 3 weeks she's been having increased right leg weakness. Patient states that she cannot get in to see a neurologist until the end of November. Patient states over the past 3 days she's been having increasing headaches, changes in vision and "not feeling myself ". Patient states that her sugars have been running very high over the past few days. Patient states earlier this afternoon her glucose level was 376. Patient states that she took 5 units of NovoLog and came here. Patient does state she has a history of DKA. Patient states she has all over body pain. Patient states she takes Percocet every 4 hours. Patient states the Percocet has not been helping her pain. Patient denies nausea or vomiting. Patient denies abdominal discomfort. Patient denies constipation or diarrhea. - Related Data Home Medications Medication Instructions Recorded Confirmed metFORMIN HCL 1,000 mg PO BID 12/26/15 11/19/16 Gabapentin [Neurontin] 900 mg PO BID 04/19/16 11/19/16 Insulin Detemir [Levemir] 35 unit SQ HS 04/19/16 11/19/16 Omeprazole 40 mg PO AC-BRKFST 04/30/16 11/19/16 oxyCODONE-APAP 10-325MG [Percocet 1 tab PO QID 04/30/16 11/19/16 10-325 mg] ALPRAZolam [Xanax] 1 mg PO QID 07/04/16 11/19/16 Zolpidem [Ambien] 10 mg PO HS 07/16/16 11/19/16 Butalb/APAP/Caff 50-325-40Mg 1 tab PO Q4H PRN 11/19/16 11/19/16 [Fioricet 50-325-40] Cyanocobalamin [Vitamin B-12 1,000 mcg SQ QMONTH 11/19/16 11/19/16 Injection] DULoxetine HCL 80 mg PO DAILY 11/19/16 11/19/16 Insulin Aspart [NovoLOG Flexpen] See Protocol SQ AC-TID 11/19/16 11/19/16 oxyCODONE-APAP 10-325MG [Percocet 1 tab PO HS PRN 11/19/16 11/19/16 10-325 mg] Allergies Allergy/AdvReac Type Severity Reaction Status Date / Time erythromycin base Allergy Rash/Hives Verified 11/19/16 19:35 Penicillins Allergy Rash/Hives Verified 11/19/16 19:35 venom-honey bee Allergy Anaphylaxis Verified 11/19/16 16:59 Review of Systems ROS Statement: Those systems with pertinent positive or pertinent negative responses have been documented in the HPI. ROS Other: All systems not noted in ROS Statement are negative. 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 has fibromyalgia Father Family Medical History: CVA/TIA Additional Family Medical History / Comment(s): Father had an dental infection that affected his heart and then caused a CVA. General Exam - General Exam Comments Initial Comments: Sitting in exam room, no acute distress. Limitations: no limitations General appearance: alert, in no apparent distress Head exam: Present: atraumatic, normocephalic, normal inspection Eye exam: Present: normal appearance, PERRL, EOMI Pupils: Present: normal accommodation ENT exam: Present: normal exam Neck exam: Present: normal inspection Respiratory exam: Present: normal lung sounds bilaterally. Absent: respiratory distress Cardiovascular Exam: Present: normal rhythm, tachycardia, normal heart sounds Neurological exam: Present: alert, oriented X3 Expanded Patient oriented to: Present: person, place, time Speech: Present: fluid speech Cranial nerves: EOM's Intact: Normal, Facial Sensation: Normal Sensory exam: Upper Extremity Light Touch: Normal, Lower Extremity Light Touch: Normal Motor strength exam: RUE: 5, LUE: 5, RLE: 3, LLE: 4 Psychiatric exam: Present: normal affect, normal mood Skin exam: Present: warm, dry, intact, normal color. Absent: rash Course Vital Signs 11/19/16 11/19/16 16:53 19:57 Temperature 100 F H 99.1 F Pulse Rate 109 H 99 Respiratory 20 18 Rate Blood Pressure 144/72 143/68 O2 Sat by Pulse 100 99 Oximetry Medical Decision Making - Medical Decision Making Patient is a 41-year-old female presents emergency room for evaluation of right leg weakness and general malaise. Patient was recently diagnosed with MS. Patient is unable to see neurologist until end of November. Patient also noted to be in DKA. Patient will be admitted for treatment of DKA and will have neurology consult for further evaluation of right leg weakness. Brain CT shows no acute findings. Case discussed with Dr. Gilbert. Dr. Gilbert discussed case with Dr. Caruso who agreed to admit patient. - Lab Data Result diagrams: 11/19/16 18:57 11/19/16 22:51 Lab Results 11/19/16 11/19/16 11/19/16 Range/Units 18:30 18:30 18:30 WBC (3.8-10.6) k/uL RBC (3.80-5.40) m/uL Hgb (11.4-16.0) gm/dL Hct (34.0-46.0) % MCV (80.0-100.0) fL MCH (25.0-35.0) pg MCHC (31.0-37.0) g/dL RDW (11.5-15.5) % Plt Count (150-450) k/uL Neutrophils % % Lymphocytes % % Monocytes % % Eosinophils % % Basophils % % Neutrophils # (1.3-7.7) k/uL Lymphocytes # (1.0-4.8) k/uL Monocytes # (0-1.0) k/uL Eosinophils # (0-0.7) k/uL Basophils # (0-0.2) k/uL Hypochromasia Sodium 132 L (137-145) mmol/L Potassium 5.0 (3.5-5.1) mmol/L Chloride 99 (98-107) mmol/L Carbon Dioxide 11 L (22-30) mmol/L Anion Gap 22 mmol/L BUN 13 (7-17) mg/dL Creatinine 0.50 L (0.52-1.04) mg/dL Est GFR (MDRD) Af Amer >60 (>60 ml/min/1.73 sqM) Est GFR (MDRD) Non-Af >60 (>60 ml/min/1.73 sqM) Glucose 567 H* (74-99) mg/dL POC Glucose (mg/dL) (75-99) mg/dL POC Glu Application Development Project Manager ID Calcium 8.9 (8.4-10.2) mg/dL Magnesium 1.6 (1.6-2.3) mg/dL Total Bilirubin 0.4 (0.2-1.3) mg/dL AST 22 (14-36) U/L ALT 31 (9-52) U/L Alkaline Phosphatase 133 H (38-126) U/L C-Reactive Protein 6.9 (<10.0) mg/L Total Protein 7.5 (6.3-8.2) g/dL Albumin 4.7 (3.5-5.0) g/dL Amylase 40 (30-110) U/L Lipase 201 (23-300) U/L Urine Color Light Yellow Urine Appearance Clear (Clear) Urine pH 5.0 (5.0-8.0) Ur Specific [place] 1.022 (1.001-1.035) Urine Protein Negative (Negative) Urine Glucose (UA) 4+ H (Negative) Urine Ketones 4+ H (Negative) Urine Blood Moderate H (Negative) Urine Nitrite Negative (Negative) Urine Bilirubin Negative (Negative) Urine Urobilinogen <2.0 (<2.0) mg/dL Ur Leukocyte Esterase Trace H (Negative) Urine RBC 2 (0-5) /hpf Urine WBC 14 H (0-5) /hpf Ur Squamous Epith Cells 2 (0-4) /hpf Urine HCG, Qual Not Detected (Not Detectd) Acetone, Qual (Negative) 11/19/16 11/19/16 11/19/16 Range/Units 18:30 18:57 19:09 WBC 4.9 (3.8-10.6) k/uL RBC 4.69 (3.80-5.40) m/uL Hgb 11.8 (11.4-16.0) gm/dL Hct 38.4 (34.0-46.0) % MCV 81.9 (80.0-100.0) fL MCH 25.1 (25.0-35.0) pg MCHC 30.6 L (31.0-37.0) g/dL RDW 15.9 H (11.5-15.5) % Plt Count 311 (150-450) k/uL Neutrophils % 58 % Lymphocytes % 32 % Monocytes % 5 % Eosinophils % 1 % Basophils % 1 % Neutrophils # 2.9 (1.3-7.7) k/uL Lymphocytes # 1.6 (1.0-4.8) k/uL Monocytes # 0.3 (0-1.0) k/uL Eosinophils # 0.1 (0-0.7) k/uL Basophils # 0.0 (0-0.2) k/uL Hypochromasia Marked Sodium (137-145) mmol/L Potassium (3.5-5.1) mmol/L Chloride (98-107) mmol/L Carbon Dioxide (22-30) mmol/L Anion Gap mmol/L BUN (7-17) mg/dL Creatinine (0.52-1.04) mg/dL Est GFR (MDRD) Af Amer (>60 ml/min/1.73 sqM) Est GFR (MDRD) Non-Af (>60 ml/min/1.73 sqM) Glucose (74-99) mg/dL POC Glucose (mg/dL) 519 H (75-99) mg/dL POC Glu Application Development Project Manager ID Anselmo, Rama Calcium (8.4-10.2) mg/dL Magnesium (1.6-2.3) mg/dL Total Bilirubin (0.2-1.3) mg/dL AST (14-36) U/L ALT (9-52) U/L Alkaline Phosphatase (38-126) U/L C-Reactive Protein Cancelled (<10.0) mg/L Total Protein (6.3-8.2) g/dL Albumin (3.5-5.0) g/dL Amylase (30-110) U/L Lipase (23-300) U/L Urine Color Urine Appearance (Clear) Urine pH (5.0-8.0) Ur Specific [place] (1.001-1.035) Urine Protein (Negative) Urine Glucose (UA) (Negative) Urine Ketones (Negative) Urine Blood (Negative) Urine Nitrite (Negative) Urine Bilirubin (Negative) Urine Urobilinogen (<2.0) mg/dL Ur Leukocyte Esterase (Negative) Urine RBC (0-5) /hpf Urine WBC (0-5) /hpf Ur Squamous Epith Cells (0-4) /hpf Urine HCG, Qual (Not Detectd) Acetone, Qual Positive (Negative) 11/19/16 Range/Units 19:10 WBC (3.8-10.6) k/uL RBC (3.80-5.40) m/uL Hgb (11.4-16.0) gm/dL Hct (34.0-46.0) % MCV (80.0-100.0) fL MCH (25.0-35.0) pg MCHC (31.0-37.0) g/dL RDW (11.5-15.5) % Plt Count (150-450) k/uL Neutrophils % % Lymphocytes % % Monocytes % % Eosinophils % % Basophils % % Neutrophils # (1.3-7.7) k/uL Lymphocytes # (1.0-4.8) k/uL Monocytes # (0-1.0) k/uL Eosinophils # (0-0.7) k/uL Basophils # (0-0.2) k/uL Hypochromasia Sodium (137-145) mmol/L Potassium (3.5-5.1) mmol/L Chloride (98-107) mmol/L Carbon Dioxide (22-30) mmol/L Anion Gap mmol/L BUN (7-17) mg/dL Creatinine (0.52-1.04) mg/dL Est GFR (MDRD) Af Amer (>60 ml/min/1.73 sqM) Est GFR (MDRD) Non-Af (>60 ml/min/1.73 sqM) Glucose (74-99) mg/dL POC Glucose (mg/dL) 519 H (75-99) mg/dL POC Glu Application Development Project Manager ID Anselmo, Rama Calcium (8.4-10.2) mg/dL Magnesium (1.6-2.3) mg/dL Total Bilirubin (0.2-1.3) mg/dL AST (14-36) U/L ALT (9-52) U/L Alkaline Phosphatase (38-126) U/L C-Reactive Protein (<10.0) mg/L Total Protein (6.3-8.2) g/dL Albumin (3.5-5.0) g/dL Amylase (30-110) U/L Lipase (23-300) U/L Urine Color Urine Appearance (Clear) Urine pH (5.0-8.0) Ur Specific [place] (1.001-1.035) Urine Protein (Negative) Urine Glucose (UA) (Negative) Urine Ketones (Negative) Urine Blood (Negative) Urine Nitrite (Negative) Urine Bilirubin (Negative) Urine Urobilinogen (<2.0) mg/dL Ur Leukocyte Esterase (Negative) Urine RBC (0-5) /hpf Urine WBC (0-5) /hpf Ur Squamous Epith Cells (0-4) /hpf Urine HCG, Qual (Not Detectd) Acetone, Qual (Negative) - Radiology Data Radiology results: report reviewed, image reviewed Disposition Clinical Impression: DKA (diabetic ketoacidosis), Right leg weakness Disposition: ADMITTED IP TO THIS [facility] Condition: Serious Decision Date: 11/19/16
[2016-11-19 18:51] LABS: Appearance,Urine Clear (Clear); Bilirubin,Urine Negative (Negative); Glucose,Urine (UA) 4+ (Negative); Leukocyte Esterase,Urine Trace (Negative); Nitrite,Urine Negative (Negative); Particle Count 3219; Protein,Urine Negative (Negative); RBC,Urine 2 /hpf (0-5); Specific Gravity,Urine 1.022 (1.001-1.035); Squamous Epithelial Cell,Urine 2 /hpf (0-4); UA Billing (MACRO vs. MICRO) MICRO; Urobilinogen,Urine <2.0 mg/dL (<2.0); WBC,Urine 14 /hpf (0-5)
[2016-11-19 19:05] LABS: Basophils % (A) 1 %; CH 23.8; CHCM 29.1; Eosinophils # (A) 0.1 k/uL (0-0.7); Eosinophils % (A) 1 %; HCT 38.4 % (34.0-46.0); HGB 11.8 gm/dL (11.4-16.0); Hypochromasia Marked; Luc # (Auto) 0.14; Luc % (Auto) 3; Lymphocytes # (A) 1.6 k/uL (1.0-4.8); Lymphocytes % (A) 32 %; MCH 25.1 pg (25.0-35.0); MCHC 30.6 g/dL (31.0-37.0); MCV 81.9 fL (80.0-100.0); Mean Platelet Volume 6.7; Monocytes # (A) 0.3 k/uL (0-1.0); Monocytes % (A) 5 %; Neutrophils # (A) 2.9 k/uL (1.3-7.7); Neutrophils % (A) 58 %; RBC 4.69 m/uL (3.80-5.40); RDW 15.9 % (11.5-15.5); WBC 4.9 k/uL (3.8-10.6)
[2016-11-19 19:11] LABS: Glucose,Whole Blood 519 mg/dL (75-99)
[2016-11-19 19:11] LABS: Glucose,Whole Blood 519 mg/dL (75-99)
[2016-11-19 19:16] LABS: ALT 31 U/L (9-52); AST 22 U/L (14-36); Alkaline Phosphatase 133 U/L (38-126); Amylase 40 U/L (30-110); Anion Gap 22 mmol/L; Blood Urea Nitrogen 13 mg/dL (7-17); C Reactive Protein 6.9 mg/L (<10.0); Calcium 8.9 mg/dL (8.4-10.2); Carbon Dioxide 11 mmol/L (22-30); Chloride 99 mmol/L (98-107); Magnesium 1.6 mg/dL (1.6-2.3); Non-African American GFR(MDRD) >60 (>60 ml/min/1.73 sqM); Sodium 132 mmol/L (137-145); Total Bilirubin 0.4 mg/dL (0.2-1.3); Total Protein 7.5 g/dL (6.3-8.2)
[2016-11-19 19:17] LABS: Ketones,Urine 4+ (Negative)
[2016-11-19 19:21] LABS: Glucose 567 mg/dL (74-99)
[2016-11-19] MEDS ORDERED: MORPHINE SULFATE 4 MG/ML SYRINGE IVP STA (19:28)
[2016-11-19] MEDS ORDERED: LORazepam 2 MG/ML SYRINGE IV STA (19:29)
[2016-11-19] MEDS ORDERED: INSULIN REGULAR BOLUS (FROM DRIP BAG) IV ONE (19:38)
[2016-11-19] MEDS ORDERED: BUTALB/APAP/CAFF 50-325-40MG TAB PO PRN (19:43)
[2016-11-19] MEDS ORDERED: NALOXONE 0.4 MG/ML 1 ML VIAL IV PRN (19:44)
[2016-11-19] MEDS ORDERED: ONDANSETRON 4 MG/2 ML VIAL IVP PRN (19:44)
[2016-11-19] MEDS ORDERED: INSULIN REGULAR 100 UNIT in SODIUM CHLORIDE 0.9% 100 ML IV SCH (19:45)
--- NOTE | 2016-11-19 20:08 | CT ---
EXAMINATION TYPE: CT brain wo con DATE OF EXAM: 11/19/2016 COMPARISON: NONE HISTORY: Right leg weakness. CT DLP: 999 mGycm. Automated Exposure Control for Dose Reduction was Utilized. TECHNIQUE: CT scan of the head is performed without contrast. FINDINGS: Ventricles of normal size. There is no mass effect nor midline shift. There is no sign of i ntracranial hemorrhage. The calvarium is intact. CONCLUSION: Negative CT scan of the brain..
[2016-11-19 20:12] LABS: Glucose,Whole Blood 492 mg/dL (75-99)
[2016-11-19] MEDS: SODIUM CHLORIDE 0.9% 1,000 ML IV SCH (20:16)
[2016-11-19 21:17] LABS: Glucose,Whole Blood 331 mg/dL (75-99)
[2016-11-19] MEDS: MORPHINE SULFATE 4 MG/ML SYRINGE IVP SCH ×2 (22:09→23:16)
[2016-11-19 22:15] LABS: Glucose,Whole Blood 181 mg/dL (75-99)
[2016-11-19] MEDS ORDERED: DEXTROSE 5%-0.45% NACL 1,000 ML with POTASSIUM CHLORIDE 20 MEQ IV SCH ×2 (22:30)
[2016-11-19] MEDS: ALPRAZolam 0.5 MG TAB PO SCH (22:32)
[2016-11-19] MEDS: ZOLPIDEM 10 MG TAB PO SCH (22:32)
[2016-11-19] MEDS: GABAPENTIN 300 MG CAP PO SCH (22:32)
[2016-11-19] MEDS ORDERED: D5-0.45% NACL WITH KCL 20MEQ/L 1,000 ML IV SCH (23:00)
[2016-11-19 23:08] LABS: Glucose,Whole Blood 147 mg/dL (75-99)
--- NOTE | 2016-11-19 23:14 | P.CNNES ---
History of Present Illness Consult date: 11/19/16 Reason for Consult: Patient admitted with history of MS and uncontrolled diabetes mellitus. History of Present Illness: This patient is a 41-year-old right-handed white female was brought into the emergency room today for evaluation of weakness and history of systemic lupus. Patient also states that she was diagnosed with multiple sclerosis 3 months ago. When asked who made her diagnosis of MS she states she was sent for an MRI of the brain at [facility]. Apparently she was told by her primary care physician Dr. Horn that she had MS. She was unable to get an appointment to see a neurologist immediately following this MRI that was done 3 months ago. She has not been on any treatment for MS and no definitive diagnosis of MS has since been made. The patient also states she has a history of lupus. She follows at the [facility] for all of her treatments. Apparently she has a lpn that has done laboratory investigations for lupus and she is positive for all of the screening markers. She is not on any specific treatment for lupus. Apparently she has a hard time getting back to the MS clinic for follow-up. The patient also has a history of uncontrolled diabetes mellitus. She is on multiple medications for her diabetes including insulin. Her blood sugar in the emergency room was 376. Apparently on initial presentation it was over 500. The patient does not have an document review specialist that Sanjiv at this time and apparently her primary care physician has been monitoring. We have recommended a endocrinology consultation for this patient. We have explained to the patient that she is not a candidate for IV steroids at this time as a definitive diagnosis has not yet been made. We will leave it up to her lpn as to whether she may benefit from steroid therapy. We will also await further recommendations from endocrinology regarding management of her uncontrolled diabetes mellitus. She will likely need to be placed on insulin drip. When questioned about her MRI of the brain that was done 3 months ago she was told that there was plaque lesions suggesting possible MS. She has not had any further neurological evaluation for this condition. Apparently she has been unable to get in for neurological appointment for 3 months. The patient currently is a MS disabled . She has to work through the [facility] apparently for many of her appointments. She has had symptoms of weakness in both lower extremities right greater than left. She also has a history of having knee surgery due to war injury in the past. She states that for the last 3 weeks she has been having increased right leg weakness. She also describes paresthesias involving her body as well as episodic diplopia. Due to the weakness in her legs and just not feeling well she decided to come to the emergency room for evaluation. Patient is now admitted and neurology has been consulted for further evaluation and recommendations. Review of Systems Constitutional: Denies chills, Denies fever Eyes: bilateral diplopia, denies blurred vision, denies pain Ears, nose, mouth and throat: Denies headache, Denies sore throat Cardiovascular: Denies chest pain, Denies shortness of breath Respiratory: Denies cough Gastrointestinal: Denies abdominal pain, Denies diarrhea, Denies nausea, Denies vomiting Genitourinary: Denies dysuria, Denies hematuria Musculoskeletal: Denies myalgias Integumentary: Denies pruritus, Denies rash Neurological: Reports ataxia, Reports burning pain, Reports gait dysfunction, Reports lack of coordination, Reports paralysis, Denies numbness, Denies weakness Psychiatric: Denies anxiety, Denies depression Endocrine: Denies fatigue, Denies weight change Past Medical History Past Medical History: Diabetes Mellitus, GERD/Reflux Additional Past Medical History / Comment(s): IDDM type II, previous DKA, low back pain, 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 has fibromyalgia Father Family Medical History: CVA/TIA Additional Family Medical History / Comment(s): Father had an dental infection that affected his heart and then caused a CVA. Medications and Allergies Home Medications Medication Instructions Recorded Confirmed Type metFORMIN HCL 1,000 mg PO BID 12/26/15 11/19/16 History Gabapentin [Neurontin] 900 mg PO BID 04/19/16 11/19/16 History Insulin Detemir [Levemir] 35 unit SQ HS 04/19/16 11/19/16 History Omeprazole 40 mg PO AC-BRKFST 04/30/16 11/19/16 History oxyCODONE-APAP 10-325MG [Percocet 1 tab PO QID 04/30/16 11/19/16 History 10-325 mg] ALPRAZolam [Xanax] 1 mg PO QID 07/04/16 11/19/16 History Zolpidem [Ambien] 10 mg PO HS 07/16/16 11/19/16 History Butalb/APAP/Caff 50-325-40Mg 1 tab PO Q4H PRN 11/19/16 11/19/16 History [Fioricet 50-325-40] Cyanocobalamin [Vitamin B-12 1,000 mcg SQ QMONTH 11/19/16 11/19/16 History Injection] DULoxetine HCL 80 mg PO DAILY 11/19/16 11/19/16 History Insulin Aspart [NovoLOG Flexpen] See Protocol SQ AC-TID 11/19/16 11/19/16 History oxyCODONE-APAP 10-325MG [Percocet 1 tab PO HS PRN 11/19/16 11/19/16 History 10-325 mg] Allergies Allergy/AdvReac Type Severity Reaction Status Date / Time erythromycin base Allergy Rash/Hives Verified 11/19/16 19:35 Penicillins Allergy Rash/Hives Verified 11/19/16 19:35 venom-honey bee Allergy Anaphylaxis Verified 11/19/16 16:59 Physical Examination - Vital Signs Vital Signs: Vital Signs Temp Pulse Resp BP Pulse Ox 11/19/16 19:57 99.1 F 99 18 143/68 99 11/19/16 16:53 100 F H 109 H 20 144/72 100 Intake and Output 11/19/16 11/19/16 11/19/16 06:59 14:59 22:59 Intake Total 1000 Balance 1000 Intake: Amount of Fluid Infused ( 1000 ml) Other: Weight 57.606 kg Patient Weight 11/20/16 06:59 Weight 57.606 kg - Constitutional General appearance: average body habitus, cooperative - EENT EENT: PERRL - Respiratory Respiratory: lungs clear, normal breath sounds - Cardiovascular Cardiovascular: regular rate, normal S1, normal S2 Extremities: no peripheral edema bilaterally - Gastrointestinal Gastrointestinal: normoactive bowel sounds - Integumentary Integumentary: normal - Neurologic Cranial nerve examination: PERRL, EOMI, VFF, V1/V2/V3 grossly intact, face symmetric, tongue midline, intact gag reflex, intact corneal reflex, normal palatal elevation Speech examination: intact Sensorimotor examination: hemiparesis Motor examination - right side: 1/5: hip flexors, knee extensors, dorsiflexion, toe extension (EHL), plantarflexion, 3/5: glass forming engineer, 4/5: biceps, triceps, wrist flexion, wrist extension Motor examination - left side: 4/5: biceps, triceps, wrist flexion, wrist extension, glass forming engineer, hip flexors, knee extensors, dorsiflexion, toe extension (EHL) , plantarflexion Detailed sensory examination: intact Reflex and gait examination: intact Reflexes: 1+: ankle, bicep, knee, tricep - Musculoskeletal Musculoskeletal: no pain - Psychiatric Psychiatric: mood/affect appropriate, cooperative Results - Laboratory Findings CBC and BMP: 11/19/16 18:57 11/19/16 18:30 Abnormal Lab Findings: Abnormal Labs 11/19/16 11/19/16 11/19/16 18:30 18:30 18:57 MCHC 30.6 L RDW 15.9 H Sodium 132 L Carbon Dioxide 11 L Creatinine 0.50 L Glucose 567 H* POC Glucose (mg/dL) Alkaline Phosphatase 133 H Urine Glucose (UA) 4+ H Urine Ketones 4+ H Urine Blood Moderate H Ur Leukocyte Esterase Trace H Urine WBC 14 H 11/19/16 11/19/16 11/19/16 19:09 19:10 20:00 MCHC RDW Sodium Carbon Dioxide Creatinine Glucose POC Glucose (mg/dL) 519 H 519 H 492 H Alkaline Phosphatase Urine Glucose (UA) Urine Ketones Urine Blood Ur Leukocyte Esterase Urine WBC Assessment and Plan (1) Multiple sclerosis Status: Acute Code(s): G35 - MULTIPLE SCLEROSIS (2) Systemic lupus erythematosus Status: Acute Code(s): M32.9 - SYSTEMIC LUPUS ERYTHEMATOSUS, UNSPECIFIED (3) Right leg weakness Status: Acute Code(s): R29.898 - OTH SYMPTOMS AND SIGNS INVOLVING THE MUSCULOSKELETAL SYSTEM (4) DKA (diabetic ketoacidoses) Status: Acute (5) Diabetes mellitus type 1 Status: Acute Code(s): E10.9 - TYPE 1 DIABETES MELLITUS WITHOUT COMPLICATIONS (6) PTSD (post-traumatic stress disorder) Status: Acute Code(s): F43.10 - POST-TRAUMATIC STRESS DISORDER, UNSPECIFIED Plan: This patient is a 41-year-old female was brought to the emergency room for right leg weakness and uncontrolled diabetes mellitus. Her blood sugars in the ER were over 500. She was sent for further evaluation of right leg weakness. She apparently underwent a MRI of the brain and [facility] 3 months ago which revealed white matter changes suggesting possibility of demyelinating disease such as MS. No other studies or evaluation by neurology was done but she was told by her primary care physician Dr. Horn that she had MS. The patient does have known history of systemic lupus. She has been seen by lpn at the MS clinic in [place]. She is not on any specific treatment for lupus at this time. The patient was also found to have evidence of uncontrolled diabetes mellitus and was in DKA. She apparently has an document review specialist but has been unable to get into the MS to follow-up. She was diagnosed with possible MS 3 months ago and has been unable to see a neurologist. She has had no further workup for MS. We have recommended she will need to undergo a lumbar puncture for further evaluation for MS. We will obtain her recent MRI of the brain from [facility] for review. We have recommended a endocrinology consultation as soon as possible for treatment of uncontrolled diabetes mellitus. She will likely need to be placed on an insulin drip. She is not a candidate for steroids at this time due to her uncontrolled diabetes mellitus. Would also recommend rheumatology consultation for evaluation and treatment of systemic lupus. Her overall prognosis at this time remains very guarded. We have discussed all of the treatment plan with the patient in detail. We will continue to follow her progress closely during this admission. Time with Patient: Greater than 30
[2016-11-19 23:15] LABS: Anion Gap 14 mmol/L; Blood Urea Nitrogen 15 mg/dL (7-17); Carbon Dioxide 15 mmol/L (22-30); Chloride 107 mmol/L (98-107); Glucose 126 mg/dL (74-99); Non-African American GFR(MDRD) >60 (>60 ml/min/1.73 sqM); Phosphorous 1.9 mg/dL (2.5-4.5); Potassium 3.5 mmol/L (3.5-5.1); Sodium 136 mmol/L (137-145)
[2016-11-20] MEDS ORDERED: POTASSIUM CHLORIDE ER 20 MEQ TAB.ER PO STA (00:10)
[2016-11-20 00:11] LABS: Glucose,Whole Blood 123 mg/dL (75-99)
[2016-11-20] MEDS: SODIUM CHLORIDE 0.9% 1,000 ML IV SCH ×5 (00:33→20:19)
[2016-11-20] MEDS: DEXTROSE 5%-0.45% NACL 1,000 ML IV SCH ×3 (00:34→17:09)
[2016-11-20 01:12] LABS: Glucose,Whole Blood 141 mg/dL (75-99)
[2016-11-20 02:03] LABS: Glucose,Whole Blood 195 mg/dL (75-99)
[2016-11-20 03:15] LABS: Glucose,Whole Blood 308 mg/dL (75-99)
[2016-11-20 03:36] LABS: Anisocytosis Slight; Basophils % (A) 1 %; CH 24.4; CHCM 31.3; Eosinophils # (A) 0.1 k/uL (0-0.7); Eosinophils % (A) 3 %; HCT 30.8 % (34.0-46.0); HDW 3.49; Hypochromasia Moderate; Luc # (Auto) 0.12; Luc % (Auto) 3; Lymphocytes # (A) 1.7 k/uL (1.0-4.8); Lymphocytes % (A) 46 %; MCH 23.8 pg (25.0-35.0); MCHC 30.4 g/dL (31.0-37.0); MCV 78.4 fL (80.0-100.0); Mean Platelet Volume 6.7; Microcytosis Slight; Monocytes # (A) 0.3 k/uL (0-1.0); Monocytes % (A) 7 %; Neutrophils # (A) 1.6 k/uL (1.3-7.7); Neutrophils % (A) 41 %; Poikilocytosis Slight; RBC 3.93 m/uL (3.80-5.40); RDW 16.4 % (11.5-15.5); WBC 3.8 k/uL (3.8-10.6); WBC (Perox) 4.16
[2016-11-20] MEDS: MORPHINE SULFATE 4 MG/ML SYRINGE IVP SCH ×5 (03:37→21:29)
[2016-11-20 03:38] LABS: HGB 9.4 gm/dL (11.4-16.0)
[2016-11-20] MEDS: LORazepam 2 MG/ML SYRINGE IV PRN ×4 (03:41→21:30)
[2016-11-20 03:49] LABS: Anion Gap 9 mmol/L; Blood Urea Nitrogen 16 mg/dL (7-17); Carbon Dioxide 18 mmol/L (22-30); Chloride 105 mmol/L (98-107); Glucose 282 mg/dL (74-99); Non-African American GFR(MDRD) >60 (>60 ml/min/1.73 sqM); Potassium 4.2 mmol/L (3.5-5.1); Sodium 132 mmol/L (137-145)
[2016-11-20 04:17] LABS: Glucose,Whole Blood 296 mg/dL (75-99)
[2016-11-20 05:22] LABS: Glucose,Whole Blood 253 mg/dL (75-99)
[2016-11-20 06:10] LABS: Glucose,Whole Blood 242 mg/dL (75-99)
[2016-11-20] MEDS ORDERED: INSULIN NPH 300 UNIT/3 ML VIAL SQ ONE (06:32)
[2016-11-20 07:06] LABS: Anion Gap 8 mmol/L; Blood Urea Nitrogen 14 mg/dL (7-17); Calcium 8.2 mg/dL (8.4-10.2); Carbon Dioxide 20 mmol/L (22-30); Chloride 107 mmol/L (98-107); Glucose 219 mg/dL (74-99); Non-African American GFR(MDRD) >60 (>60 ml/min/1.73 sqM); Potassium 3.7 mmol/L (3.5-5.1); Sodium 135 mmol/L (137-145)
[2016-11-20] MEDS: INSULIN LISPRO (humaLOG) 300 UNIT/3 ML VIAL SQ SCH ×7 (07:18→21:30)
[2016-11-20 07:24] LABS: Glucose,Whole Blood 194 mg/dL (75-99)
[2016-11-20 08:17] LABS: Glucose,Whole Blood 262 mg/dL (75-99)
[2016-11-20] MEDS: GABAPENTIN 300 MG CAP PO SCH ×2 (09:03→21:28)
[2016-11-20] MEDS: ALPRAZolam 0.5 MG TAB PO SCH ×4 (09:14→21:30)
[2016-11-20 12:10] LABS: Glucose,Whole Blood 229 mg/dL (75-99)
[2016-11-20 12:34] LABS: Hemoglobin A1C 13.6 % (4.2-6.1)
[2016-11-20 13:46] VITALS: BMI 24.7
[2016-11-20] MEDS ORDERED: SODIUM CHLORIDE 0.9% 1,000 ML IV ONE (14:22)
[2016-11-20] MEDS ORDERED: fentaNYL (PF) 50 MCG/ML 2 ML AMP IV ONE (14:45)
[2016-11-20] MEDS ORDERED: MIDAZOLAM 2 MG/2 ML VIAL IV ONE (14:45)
--- NOTE | 2016-11-20 15:25 | P.HPIM ---
History of Present Illness H&P Date: 11/20/16 41 yr old type 1 diabteic comes into the hospital with gen. weakness and uncontrolled DM. Pt apparently used to use a pump, however, due to lack of supplies pt stopped using her pump and was started on long acting insulin in the recent times Pt states that she was told that she has BESS titers that are positive with speckles appearance and DsDNA that was positive. States that she gets joint pain in her hands, Mainly MIP also notes a Butterfly rash on her face worsened with sunlight. However, pt was seen by a physician at [facility] and was told she does not meet criteria. Pt states that she has distal weakness, and this is from MS from MRI obtained at [facility] . Pt currently states that she keeps forgetting to take her insulin intermittently She is 100% service connected States to be feeling slightly better at this time However is anxious to get a diagnosis. 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 has fibromyalgia Father Family Medical History: CVA/TIA Additional Family Medical History / Comment(s): Father had an dental infection that affected his heart and then caused a CVA. Medications and Allergies Home Medications Medication Instructions Recorded Confirmed Type metFORMIN HCL 1,000 mg PO BID 12/26/15 11/19/16 History Gabapentin [Neurontin] 900 mg PO BID 04/19/16 11/19/16 History Insulin Detemir [Levemir] 35 unit SQ HS 04/19/16 11/19/16 History Omeprazole 40 mg PO AC-BRKFST 04/30/16 11/19/16 History oxyCODONE-APAP 10-325MG [Percocet 1 tab PO QID 04/30/16 11/19/16 History 10-325 mg] ALPRAZolam [Xanax] 1 mg PO QID 07/04/16 11/19/16 History Zolpidem [Ambien] 10 mg PO HS 07/16/16 11/19/16 History Butalb/APAP/Caff 50-325-40Mg 1 tab PO Q4H PRN 11/19/16 11/19/16 History [Fioricet 50-325-40] Cyanocobalamin [Vitamin B-12 1,000 mcg SQ QMONTH 11/19/16 11/19/16 History Injection] DULoxetine HCL 80 mg PO DAILY 11/19/16 11/19/16 History Insulin Aspart [NovoLOG Flexpen] See Protocol SQ AC-TID 11/19/16 11/19/16 History oxyCODONE-APAP 10-325MG [Percocet 1 tab PO HS PRN 11/19/16 11/19/16 History 10-325 mg] Allergies Allergy/AdvReac Type Severity Reaction Status Date / Time erythromycin base Allergy Rash/Hives Verified 11/19/16 19:35 Penicillins Allergy Rash/Hives Verified 11/19/16 19:35 venom-honey bee Allergy Anaphylaxis Verified 11/19/16 16:59 Physical Exam Vitals: Vital Signs Temp Pulse Pulse Resp BP BP Pulse Ox 11/20/16 14:23 103 H 18 125/67 99 11/20/16 08:00 101 H 14 101/63 99 11/20/16 04:00 97.7 F 94 18 116/57 96 11/20/16 00:00 98.8 F 94 16 119/67 99 11/19/16 23:10 98.7 F 100 18 125/76 97 11/19/16 21:05 98.7 F 100 18 125/76 97 11/19/16 19:57 99.1 F 99 18 143/68 99 11/19/16 16:53 100 F H 109 H 20 144/72 100 Intake and Output 11/20/16 11/20/16 11/20/16 06:59 14:59 22:59 Intake Total 1071.448 480 Balance 1071.448 480 Intake: IV 1050 Dextrose 5%-0.45% NaCl 1, 1050 000 ml @ 150 mls/hr IV . Q6H40M [facility] Rx#:[id number] Intake, IV Titration 21.448 Amount Insulin Regular 100 unit 21.448 In Sodium Chloride 0.9% 100 ml @ 0.1 UNITS/KG/HR 5.81 mls/hr IV .[id number] [facility] Rx#:[id number] Oral 480 Other: # Voids 2 Weight 63.4 kg 63.4 kg Patient Weight 11/21/16 06:59 Weight 63.4 kg - Constitutional General appearance: no acute distress - EENT Eyes: EOMI, PERRLA - Neck Neck: normal ROM Thyroid: bilateral: normal size - Respiratory Respiratory: bilateral: CTA, negative: dullness, rales, rhonchi - Cardiovascular Rhythm: regular Heart sounds: normal: S1, S2 Abnormal Heart Sounds: no systolic murmur - Gastrointestinal General gastrointestinal: normal bowel sounds, no organomegaly, soft - Neurologic Neurologic: CNII-XII intact (distal weakness in lower ext. bilaterally) - Musculoskeletal Musculoskeletal: no gait normal - Psychiatric Psychiatric: A&O x's 3 Results CBC & Chem 7: 11/20/16 02:52 11/20/16 06:08 Labs: Abnormal Lab Results - Last 24 Hours (Table) 11/19/16 11/19/16 11/19/16 Range/Units 18:30 18:30 18:57 Hgb (11.4-16.0) gm/dL Hct (34.0-46.0) % MCV (80.0-100.0) fL MCH (25.0-35.0) pg MCHC 30.6 L (31.0-37.0) g/dL RDW 15.9 H (11.5-15.5) % Sodium 132 L (137-145) mmol/L Carbon Dioxide 11 L (22-30) mmol/L Creatinine 0.50 L (0.52-1.04) mg/dL Glucose 567 H* (74-99) mg/dL POC Glucose (mg/dL) (75-99) mg/dL Hemoglobin A1c (4.2-6.1) % Calcium (8.4-10.2) mg/dL Phosphorus (2.5-4.5) mg/dL Alkaline Phosphatase 133 H (38-126) U/L Urine Glucose (UA) 4+ H (Negative) Urine Ketones 4+ H (Negative) Urine Blood Moderate H (Negative) Ur Leukocyte Esterase Trace H (Negative) Urine WBC 14 H (0-5) /hpf 11/19/16 11/19/16 11/19/16 Range/Units 19:09 19:10 20:00 Hgb (11.4-16.0) gm/dL Hct (34.0-46.0) % MCV (80.0-100.0) fL MCH (25.0-35.0) pg MCHC (31.0-37.0) g/dL RDW (11.5-15.5) % Sodium (137-145) mmol/L Carbon Dioxide (22-30) mmol/L Creatinine (0.52-1.04) mg/dL Glucose (74-99) mg/dL POC Glucose (mg/dL) 519 H 519 H 492 H (75-99) mg/dL Hemoglobin A1c (4.2-6.1) % Calcium (8.4-10.2) mg/dL Phosphorus (2.5-4.5) mg/dL Alkaline Phosphatase (38-126) U/L Urine Glucose (UA) (Negative) Urine Ketones (Negative) Urine Blood (Negative) Ur Leukocyte Esterase (Negative) Urine WBC (0-5) /hpf 11/19/16 11/19/16 11/19/16 Range/Units 21:16 22:13 22:51 Hgb (11.4-16.0) gm/dL Hct (34.0-46.0) % MCV (80.0-100.0) fL MCH (25.0-35.0) pg MCHC (31.0-37.0) g/dL RDW (11.5-15.5) % Sodium 136 L (137-145) mmol/L Carbon Dioxide 15 L (22-30) mmol/L Creatinine 0.40 L (0.52-1.04) mg/dL Glucose 126 H (74-99) mg/dL POC Glucose (mg/dL) 331 H 181 H (75-99) mg/dL Hemoglobin A1c (4.2-6.1) % Calcium (8.4-10.2) mg/dL Phosphorus 1.9 L (2.5-4.5) mg/dL Alkaline Phosphatase (38-126) U/L Urine Glucose (UA) (Negative) Urine Ketones (Negative) Urine Blood (Negative) Ur Leukocyte Esterase (Negative) Urine WBC (0-5) /hpf 11/19/16 11/20/16 11/20/16 Range/Units 23:07 00:09 01:11 Hgb (11.4-16.0) gm/dL Hct (34.0-46.0) % MCV (80.0-100.0) fL MCH (25.0-35.0) pg MCHC (31.0-37.0) g/dL RDW (11.5-15.5) % Sodium (137-145) mmol/L Carbon Dioxide (22-30) mmol/L Creatinine (0.52-1.04) mg/dL Glucose (74-99) mg/dL POC Glucose (mg/dL) 147 H 123 H 141 H (75-99) mg/dL Hemoglobin A1c (4.2-6.1) % Calcium (8.4-10.2) mg/dL Phosphorus (2.5-4.5) mg/dL Alkaline Phosphatase (38-126) U/L Urine Glucose (UA) (Negative) Urine Ketones (Negative) Urine Blood (Negative) Ur Leukocyte Esterase (Negative) Urine WBC (0-5) /hpf 11/20/16 11/20/16 11/20/16 Range/Units 02:02 02:52 02:52 Hgb (11.4-16.0) gm/dL Hct (34.0-46.0) % MCV (80.0-100.0) fL MCH (25.0-35.0) pg MCHC (31.0-37.0) g/dL RDW (11.5-15.5) % Sodium 132 L (137-145) mmol/L Carbon Dioxide 18 L (22-30) mmol/L Creatinine (0.52-1.04) mg/dL Glucose 282 H (74-99) mg/dL POC Glucose (mg/dL) 195 H (75-99) mg/dL Hemoglobin A1c 13.6 H (4.2-6.1) % Calcium (8.4-10.2) mg/dL Phosphorus (2.5-4.5) mg/dL Alkaline Phosphatase (38-126) U/L Urine Glucose (UA) (Negative) Urine Ketones (Negative) Urine Blood (Negative) Ur Leukocyte Esterase (Negative) Urine WBC (0-5) /hpf 11/20/16 11/20/16 11/20/16 Range/Units 02:52 03:13 04:15 Hgb 9.4 L D (11.4-16.0) gm/dL Hct 30.8 L (34.0-46.0) % MCV 78.4 L (80.0-100.0) fL MCH 23.8 L (25.0-35.0) pg MCHC 30.4 L (31.0-37.0) g/dL RDW 16.4 H (11.5-15.5) % Sodium (137-145) mmol/L Carbon Dioxide (22-30) mmol/L Creatinine (0.52-1.04) mg/dL Glucose (74-99) mg/dL POC Glucose (mg/dL) 308 H 296 H (75-99) mg/dL Hemoglobin A1c (4.2-6.1) % Calcium (8.4-10.2) mg/dL Phosphorus (2.5-4.5) mg/dL Alkaline Phosphatase (38-126) U/L Urine Glucose (UA) (Negative) Urine Ketones (Negative) Urine Blood (Negative) Ur Leukocyte Esterase (Negative) Urine WBC (0-5) /hpf 11/20/16 11/20/16 11/20/16 Range/Units 05:20 06:08 06:08 Hgb (11.4-16.0) gm/dL Hct (34.0-46.0) % MCV (80.0-100.0) fL MCH (25.0-35.0) pg MCHC (31.0-37.0) g/dL RDW (11.5-15.5) % Sodium 135 L (137-145) mmol/L Carbon Dioxide 20 L (22-30) mmol/L Creatinine 0.49 L (0.52-1.04) mg/dL Glucose 219 H (74-99) mg/dL POC Glucose (mg/dL) 253 H 242 H (75-99) mg/dL Hemoglobin A1c (4.2-6.1) % Calcium 8.2 L (8.4-10.2) mg/dL Phosphorus (2.5-4.5) mg/dL Alkaline Phosphatase (38-126) U/L Urine Glucose (UA) (Negative) Urine Ketones (Negative) Urine Blood (Negative) Ur Leukocyte Esterase (Negative) Urine WBC (0-5) /hpf 11/20/16 11/20/16 11/20/16 Range/Units 07:04 08:12 11:38 Hgb (11.4-16.0) gm/dL Hct (34.0-46.0) % MCV (80.0-100.0) fL MCH (25.0-35.0) pg MCHC (31.0-37.0) g/dL RDW (11.5-15.5) % Sodium (137-145) mmol/L Carbon Dioxide (22-30) mmol/L Creatinine (0.52-1.04) mg/dL Glucose (74-99) mg/dL POC Glucose (mg/dL) 194 H 262 H 229 H (75-99) mg/dL Hemoglobin A1c (4.2-6.1) % Calcium (8.4-10.2) mg/dL Phosphorus (2.5-4.5) mg/dL Alkaline Phosphatase (38-126) U/L Urine Glucose (UA) (Negative) Urine Ketones (Negative) Urine Blood (Negative) Ur Leukocyte Esterase (Negative) Urine WBC (0-5) /hpf Thrombosis Risk Factor Assmnt - Choose All That Apply Any of the Below Risk Factors Present?: Yes Each Factor Represents 1 point: Age 41-60 years Other Risk Factors: No Other congenital or acquired thrombophilia - If yes, enter type in comment: No Thrombosis Risk Factor Assessment Total Risk Factor Score: 1 Thrombosis Risk Factor Assessment Level: Low Risk Assessment and Plan Plan: 1. DKA resolved 2. Bilateral lower ext. weakness , unknown underlying etiology 3. DM type 1 poorly controlled 4. HTN 5. Anxiety and PTSD?? 6. Peripheral neuropathy PLan Neurology recs noted titrate off the insulin drip will obtain serology including rheumatoid factors ds dna and bess. pt still is not actively showing 4 organ system involvement for a diagnosis of SLE question of MS defer to neurology for lumbar spinal tap and other workup DVT prophylaxis.
--- NOTE | 2016-11-20 15:56 | P.PCN ---
Date of Procedure: 11/20/16 Preoperative Diagnosis: Multiple Sclerosis Postoperative Diagnosis: Same Procedure(s) Performed: Diagnostic lumbar puncture Implants: Anesthesia: local Surgeon: Sky Marroquin Estimated Blood Loss (ml): 1 IV fluids (ml): 10 Urine output (ml): 0 Pathology: none sent Condition: stable Disposition: floor Indications for Procedure: Episodic waxing and waning neurological deficits Operative Findings: Clear untinged cerebrospinal fluid Description of Procedure: After administration of 1 mg first set and 1 mL of fentanyl IV the patient was seated over the edge of the stretcher and the lumbar back was prepped and draped sterilely. The L3 4 interspace was located by palpation and a small skin wheal was raised with approximately a 10th of a cc of 1% plain lidocaine. A 20-gauge cranky spinal needle was then advanced through the interspace into the subarachnoid space without difficulty or trauma. At this point proximally 3 -4 mL of clear on tinged CSF was collected sequentially in specimen tubes 1 through 4. The needle was then removed and the puncture site dressed with a Band-Aid.
[2016-11-20 16:31] LABS: Glucose,CSF 134 mg/dL (40-70)
[2016-11-20 16:40] LABS: Glucose,Whole Blood 227 mg/dL (75-99)
[2016-11-20 16:54] LABS: Appearance,CSF Clear
--- NOTE | 2016-11-20 18:20 | P.PN ---
Subjective This patient is a 41-year-old female who was admitted yesterday through the emergency room with symptoms of right leg weakness and generalized paresthesias. Patient apparently had an MRI of the brain done at [facility] 3 months ago which revealed possibility of demyelinating disease and MS. She is also been diagnosed as having systemic lupus by precision agriculture technician at the [facility] in [place]. She is not on any specific treatment. We have requested a rheumatology consultation for verification of her diagnosis of systemic lupus. The patient underwent lumbar puncture today for further evaluation of MS. Anesthesia performed the LP today. Initial results indicated 0 WBC be seeing and 0 RBC. CSF glucose was 134 and elevated and CSF protein was 56. We will await the EMS panel for further assessment for possibility of MS in this patient. This will take 10-12 days to receive. We have requested the MRI report to be sent from [facility] for review. This was just done 3 months ago of the brain. Patient states that she has continued to have generalized weakness right leg more than the left in the lower extremities. She describes symptoms of generalized weakness as well. She is also being treated for diabetic ketoacidosis. She was admitted with uncontrolled hyperglycemia. She was placed on insulin drip which apparently has been discontinued. We're waiting formal endocrinology consultation with Dr. Marcelo. Patient is not a candidate for IV steroids at this time until she is evaluated by endocrinology. Rheumatoid factor was ordered today and is less than 9.0. We will await further recommendations from Dr. Mack regarding further rheumatological workup for the patient. Steroid therapy would cause her blood sugars to remain uncontrolled. We will continue close neurological follow-up for this patient during this admission. Objective - Vital Signs Vital signs: Vital Signs Temp 97.7 F 11/20/16 04:00 Pulse 103 H 11/20/16 14:23 Resp 18 11/20/16 14:23 BP 125/67 11/20/16 14:23 Pulse Ox 99 11/20/16 14:23 Intake & Output 11/19/16 11/20/16 11/20/16 18:59 06:59 18:59 Intake Total 5.770 480 Balance 5.770 480 Weight 57.606 kg 63.4 kg 63.4 kg Intake: IV 1050 Dextrose 5%-0.45% NaCl 1, 1050 000 ml @ 150 mls/hr IV . Q6H40M [facility] Rx#:[id number] Amount of Fluid Infused ( 1000 ml) Intake, IV Titration 35.770 Amount Insulin Regular 100 unit 35.770 In Sodium Chloride 0.9% 100 ml @ 0.1 UNITS/KG/HR 5.81 mls/hr IV .[id number] [facility] Rx#:[id number] Oral 480 Other: # Voids 2 - Exam Physical examination: PHYSICAL EXAMINATION: Patient is resting comfortably in bed. VITAL SIGNS: Blood pressure is [125/67]. Heart rate is [103]. Respiration is [18 ]. Temperature is [97.7]. HEENT: Head is atraumatic, neck is supple, there were no carotid bruits. CHEST: Lungs are clear to auscultation and percussion. CARDIAC: S1, S2 normal rate and rhythm. There is no murmur. ABDOMEN: Soft and nontender. Bowel sounds are present. EXTREMITIES: There is no pedal edema. Peripheral pulses are present. Neurological examination: Patient's neurological examination is unchanged from yesterday. She continues to have right lower extremity weakness. - Labs CBC & Chem 7: 11/20/16 02:52 11/20/16 06:08 Labs: Abnormal Lab Results - Last 24 Hours (Table) 11/19/16 11/19/16 11/19/16 Range/Units 18:30 18:30 18:57 Hgb (11.4-16.0) gm/dL Hct (34.0-46.0) % MCV (80.0-100.0) fL MCH (25.0-35.0) pg MCHC 30.6 L (31.0-37.0) g/dL RDW 15.9 H (11.5-15.5) % Sodium 132 L (137-145) mmol/L Carbon Dioxide 11 L (22-30) mmol/L Creatinine 0.50 L (0.52-1.04) mg/dL Glucose 567 H* (74-99) mg/dL POC Glucose (mg/dL) (75-99) mg/dL Hemoglobin A1c (4.2-6.1) % Calcium (8.4-10.2) mg/dL Phosphorus (2.5-4.5) mg/dL Alkaline Phosphatase 133 H (38-126) U/L Urine Glucose (UA) 4+ H (Negative) Urine Ketones 4+ H (Negative) Urine Blood Moderate H (Negative) Ur Leukocyte Esterase Trace H (Negative) Urine WBC 14 H (0-5) /hpf CSF Glucose (40-70) mg/dL 11/19/16 11/19/16 11/19/16 Range/Units 19:09 19:10 20:00 Hgb (11.4-16.0) gm/dL Hct (34.0-46.0) % MCV (80.0-100.0) fL MCH (25.0-35.0) pg MCHC (31.0-37.0) g/dL RDW (11.5-15.5) % Sodium (137-145) mmol/L Carbon Dioxide (22-30) mmol/L Creatinine (0.52-1.04) mg/dL Glucose (74-99) mg/dL POC Glucose (mg/dL) 519 H 519 H 492 H (75-99) mg/dL Hemoglobin A1c (4.2-6.1) % Calcium (8.4-10.2) mg/dL Phosphorus (2.5-4.5) mg/dL Alkaline Phosphatase (38-126) U/L Urine Glucose (UA) (Negative) Urine Ketones (Negative) Urine Blood (Negative) Ur Leukocyte Esterase (Negative) Urine WBC (0-5) /hpf CSF Glucose (40-70) mg/dL 11/19/16 11/19/16 11/19/16 Range/Units 21:16 22:13 22:51 Hgb (11.4-16.0) gm/dL Hct (34.0-46.0) % MCV (80.0-100.0) fL MCH (25.0-35.0) pg MCHC (31.0-37.0) g/dL RDW (11.5-15.5) % Sodium 136 L (137-145) mmol/L Carbon Dioxide 15 L (22-30) mmol/L Creatinine 0.40 L (0.52-1.04) mg/dL Glucose 126 H (74-99) mg/dL POC Glucose (mg/dL) 331 H 181 H (75-99) mg/dL Hemoglobin A1c (4.2-6.1) % Calcium (8.4-10.2) mg/dL Phosphorus 1.9 L (2.5-4.5) mg/dL Alkaline Phosphatase (38-126) U/L Urine Glucose (UA) (Negative) Urine Ketones (Negative) Urine Blood (Negative) Ur Leukocyte Esterase (Negative) Urine WBC (0-5) /hpf CSF Glucose (40-70) mg/dL 11/19/16 11/20/16 11/20/16 Range/Units 23:07 00:09 01:11 Hgb (11.4-16.0) gm/dL Hct (34.0-46.0) % MCV (80.0-100.0) fL MCH (25.0-35.0) pg MCHC (31.0-37.0) g/dL RDW (11.5-15.5) % Sodium (137-145) mmol/L Carbon Dioxide (22-30) mmol/L Creatinine (0.52-1.04) mg/dL Glucose (74-99) mg/dL POC Glucose (mg/dL) 147 H 123 H 141 H (75-99) mg/dL Hemoglobin A1c (4.2-6.1) % Calcium (8.4-10.2) mg/dL Phosphorus (2.5-4.5) mg/dL Alkaline Phosphatase (38-126) U/L Urine Glucose (UA) (Negative) Urine Ketones (Negative) Urine Blood (Negative) Ur Leukocyte Esterase (Negative) Urine WBC (0-5) /hpf CSF Glucose (40-70) mg/dL 11/20/16 11/20/16 11/20/16 Range/Units 02:02 02:52 02:52 Hgb (11.4-16.0) gm/dL Hct (34.0-46.0) % MCV (80.0-100.0) fL MCH (25.0-35.0) pg MCHC (31.0-37.0) g/dL RDW (11.5-15.5) % Sodium 132 L (137-145) mmol/L Carbon Dioxide 18 L (22-30) mmol/L Creatinine (0.52-1.04) mg/dL Glucose 282 H (74-99) mg/dL POC Glucose (mg/dL) 195 H (75-99) mg/dL Hemoglobin A1c 13.6 H (4.2-6.1) % Calcium (8.4-10.2) mg/dL Phosphorus (2.5-4.5) mg/dL Alkaline Phosphatase (38-126) U/L Urine Glucose (UA) (Negative) Urine Ketones (Negative) Urine Blood (Negative) Ur Leukocyte Esterase (Negative) Urine WBC (0-5) /hpf CSF Glucose (40-70) mg/dL 11/20/16 11/20/16 11/20/16 Range/Units 02:52 03:13 04:15 Hgb 9.4 L D (11.4-16.0) gm/dL Hct 30.8 L (34.0-46.0) % MCV 78.4 L (80.0-100.0) fL MCH 23.8 L (25.0-35.0) pg MCHC 30.4 L (31.0-37.0) g/dL RDW 16.4 H (11.5-15.5) % Sodium (137-145) mmol/L Carbon Dioxide (22-30) mmol/L Creatinine (0.52-1.04) mg/dL Glucose (74-99) mg/dL POC Glucose (mg/dL) 308 H 296 H (75-99) mg/dL Hemoglobin A1c (4.2-6.1) % Calcium (8.4-10.2) mg/dL Phosphorus (2.5-4.5) mg/dL Alkaline Phosphatase (38-126) U/L Urine Glucose (UA) (Negative) Urine Ketones (Negative) Urine Blood (Negative) Ur Leukocyte Esterase (Negative) Urine WBC (0-5) /hpf CSF Glucose (40-70) mg/dL 11/20/16 11/20/16 11/20/16 Range/Units 05:20 06:08 06:08 Hgb (11.4-16.0) gm/dL Hct (34.0-46.0) % MCV (80.0-100.0) fL MCH (25.0-35.0) pg MCHC (31.0-37.0) g/dL RDW (11.5-15.5) % Sodium 135 L (137-145) mmol/L Carbon Dioxide 20 L (22-30) mmol/L Creatinine 0.49 L (0.52-1.04) mg/dL Glucose 219 H (74-99) mg/dL POC Glucose (mg/dL) 253 H 242 H (75-99) mg/dL Hemoglobin A1c (4.2-6.1) % Calcium 8.2 L (8.4-10.2) mg/dL Phosphorus (2.5-4.5) mg/dL Alkaline Phosphatase (38-126) U/L Urine Glucose (UA) (Negative) Urine Ketones (Negative) Urine Blood (Negative) Ur Leukocyte Esterase (Negative) Urine WBC (0-5) /hpf CSF Glucose (40-70) mg/dL 11/20/16 11/20/16 11/20/16 Range/Units 07:04 08:12 11:38 Hgb (11.4-16.0) gm/dL Hct (34.0-46.0) % MCV (80.0-100.0) fL MCH (25.0-35.0) pg MCHC (31.0-37.0) g/dL RDW (11.5-15.5) % Sodium (137-145) mmol/L Carbon Dioxide (22-30) mmol/L Creatinine (0.52-1.04) mg/dL Glucose (74-99) mg/dL POC Glucose (mg/dL) 194 H 262 H 229 H (75-99) mg/dL Hemoglobin A1c (4.2-6.1) % Calcium (8.4-10.2) mg/dL Phosphorus (2.5-4.5) mg/dL Alkaline Phosphatase (38-126) U/L Urine Glucose (UA) (Negative) Urine Ketones (Negative) Urine Blood (Negative) Ur Leukocyte Esterase (Negative) Urine WBC (0-5) /hpf CSF Glucose (40-70) mg/dL 11/20/16 11/20/16 Range/Units 15:00 16:35 Hgb (11.4-16.0) gm/dL Hct (34.0-46.0) % MCV (80.0-100.0) fL MCH (25.0-35.0) pg MCHC (31.0-37.0) g/dL RDW (11.5-15.5) % Sodium (137-145) mmol/L Carbon Dioxide (22-30) mmol/L Creatinine (0.52-1.04) mg/dL Glucose (74-99) mg/dL POC Glucose (mg/dL) 227 H (75-99) mg/dL Hemoglobin A1c (4.2-6.1) % Calcium (8.4-10.2) mg/dL Phosphorus (2.5-4.5) mg/dL Alkaline Phosphatase (38-126) U/L Urine Glucose (UA) (Negative) Urine Ketones (Negative) Urine Blood (Negative) Ur Leukocyte Esterase (Negative) Urine WBC (0-5) /hpf CSF Glucose 134 H (40-70) mg/dL Microbiology - Last 24 Hours (Table) 11/20/16 15:00 CSF Gram Stain - Preliminary Cerebral Spinal Fluid CSF Culture - Preliminary Assessment and Plan (1) Multiple sclerosis Status: Acute Code(s): G35 - MULTIPLE SCLEROSIS (2) Systemic lupus erythematosus Status: Acute Code(s): M32.9 - SYSTEMIC LUPUS ERYTHEMATOSUS, UNSPECIFIED (3) Right leg weakness Status: Acute Code(s): R29.898 - [facility] SYMPTOMS AND SIGNS INVOLVING THE MUSCULOSKELETAL SYSTEM (4) DKA (diabetic ketoacidoses) Status: Acute (5) Diabetes mellitus type 1 Status: Acute Code(s): E10.9 - TYPE 1 DIABETES MELLITUS WITHOUT COMPLICATIONS (6) PTSD (post-traumatic stress disorder) Status: Acute Code(s): F43.10 - POST-TRAUMATIC STRESS DISORDER, UNSPECIFIED Plan: This patient is a 41-year-old female who was admitted to hospital yesterday with multiple symptoms and complaints. She has a known history of systemic lupus. She is followed by a precision agriculture technician at the OR clinic. She is also recently told that she may have multiple sclerosis. This has not been evaluated other than an MRI of the brain. This was done 3 months ago and [facility] and we're waiting to review this report. She did undergo a lumbar puncture today for further evaluation for MS. This MS panel has been sent and will be needing follow-up for more definitive diagnosis of MS. Rheumatology has been consulted for further evaluation of her history of lupus. We are also awaiting consultation from Dr. Marcelo for further management of her uncontrolled diabetes mellitus. She has been taken off the insulin pump today. We have consulted PT /OT to further evaluate the patient. She will likely need subacute rehab at the time of discharge. Continue current treatment plans. Her overall prognosis at this time remains guarded.
[2016-11-20 19:10] LABS: Glucose,Whole Blood 251 mg/dL (75-99)
[2016-11-20] MEDS ORDERED: INSULIN GLARGINE 100 UNIT/ML 10 ML VIAL SQ SCH (21:00)
[2016-11-20] MEDS: INSULIN GLARGINE 100 UNIT/ML 10 ML VIAL SQ SCH (21:29)
[2016-11-20] MEDS: ZOLPIDEM 10 MG TAB PO SCH (21:30)
[2016-11-20 23:20] LABS: Glucose,Whole Blood 335 mg/dL (75-99)
[2016-11-21] MEDS: MORPHINE SULFATE 4 MG/ML SYRINGE IVP SCH ×6 (00:24→20:41)
[2016-11-21] MEDS: SODIUM CHLORIDE 0.9% 1,000 ML IV SCH ×5 (01:54→21:03)
[2016-11-21] MEDS: LORazepam 2 MG/ML SYRINGE IV PRN ×4 (03:37→20:43)
[2016-11-21 05:40] LABS: Glucose,Whole Blood 253 mg/dL (75-99)
[2016-11-21] MEDS: INSULIN LISPRO (humaLOG) 300 UNIT/3 ML VIAL SQ SCH ×7 (07:03→21:07)
--- NOTE | 2016-11-21 08:44 | P.PN ---
Progress Note - Text 0835 anesthesia postprocedure day 1. Patient is status post diagnostic lumbar puncture. Puncture site looks good. No evidence of post LP headache.
[2016-11-21] MEDS: ALPRAZolam 0.5 MG TAB PO SCH ×4 (09:07→20:43)
[2016-11-21] MEDS: GABAPENTIN 300 MG CAP PO SCH ×2 (09:17→20:43)
[2016-11-21 10:07] LABS: Hepatitis B Surface Ag Index 0.04
[2016-11-21 10:13] LABS: Hepatitis B Core IgM Index 0.01
[2016-11-21 10:24] LABS: Hepatitis C Virus IgG Ab Negative (Negative); Hepatitis C Virus IgG Index 0.02
[2016-11-21 10:40] LABS: Iron 21 ug/dL (37-170)
[2016-11-21 10:49] LABS: % Iron Saturation 6.3 % (20-50); Total Iron Binding Capacity 336 ug/dL (265-497)
[2016-11-21 11:33] LABS: Glucose,Whole Blood 178 mg/dL (75-99)
--- NOTE | 2016-11-21 14:22 | P.PN ---
Subjective This patient is a 41-year-old female who was admitted yesterday through the emergency room with symptoms of right leg weakness and generalized paresthesias. Patient apparently had an MRI of the brain done at [facility] 3 months ago which revealed possibility of demyelinating disease and MS. She is also been diagnosed as having systemic lupus by architectural administrative assistant at the [facility] in [place]. She is not on any specific treatment. We have requested a rheumatology consultation for verification of her diagnosis of systemic lupus. The patient underwent lumbar puncture today for further evaluation of MS. Anesthesia performed the LP today. Initial results indicated 0 WBC be seeing and 0 RBC. CSF glucose was 134 and elevated and CSF protein was 56. We will await the EMS panel for further assessment for possibility of MS in this patient. This will take 10-12 days to receive. We have requested the MRI report to be sent from [facility] for review. This was just done 3 months ago of the brain. Patient states that she has continued to have generalized weakness right leg more than the left in the lower extremities. She describes symptoms of generalized weakness as well. She is also being treated for diabetic ketoacidosis. She was admitted with uncontrolled hyperglycemia. She was placed on insulin drip which apparently has been discontinued. We're waiting formal endocrinology consultation with Dr. Marcelo. Patient is not a candidate for IV steroids at this time until she is evaluated by endocrinology. Her hemoglobin A1c is 13.6. Rheumatoid factor was ordered today and is less than 9.0. We will await further recommendations from Dr. Mack regarding further rheumatological workup for the patient. Patient apparently was told by her architectural administrative assistant in [place] that her test results were not conclusive for diagnosis of lupus. We will need further input from Dr. Mack in regards to her current working diagnosis. Steroid therapy would cause her blood sugars to remain uncontrolled. Her definitive diagnosis of MS is also uncertain at this time. She did complete her spinal fluid examination and we will need to await the final result of her MS panel. Patient may benefit from PT/OT evaluation and possible transfer to subacute rehab. We will continue close neurological follow-up for this patient during this admission. Objective - Vital Signs Vital signs: Vital Signs Temp 97.3 F L 11/21/16 04:00 Pulse 89 11/21/16 04:00 Resp 18 11/21/16 04:00 BP 117/63 11/21/16 04:00 Pulse Ox 100 11/21/16 04:00 Intake & Output 11/20/16 11/21/16 11/21/16 18:59 06:59 18:59 Intake Total 480 500 Output Total 350 Balance 480 150 Weight 63.4 kg 63.3 kg Intake: Oral 480 500 Output: Urine 350 Other: # Voids 1 - Exam Physical examination: PHYSICAL EXAMINATION: Patient is resting comfortably in bed. VITAL SIGNS: Blood pressure is [122/73]. Heart rate is [102]. Respiration is [14 ]. Temperature is [97.8]. HEENT: Head is atraumatic, neck is supple, there were no carotid bruits. CHEST: Lungs are clear to auscultation and percussion. CARDIAC: S1, S2 normal rate and rhythm. There is no murmur. ABDOMEN: Soft and nontender. Bowel sounds are present. EXTREMITIES: There is no pedal edema. Peripheral pulses are present. Neurological examination: Patient's neurological examination is unchanged from yesterday. She continues to have right lower extremity weakness. - Labs CBC & Chem 7: 11/20/16 02:52 11/20/16 06:08 Labs: Abnormal Lab Results - Last 24 Hours (Table) 11/20/16 11/20/16 11/20/16 Range/Units 02:52 11:38 15:00 POC Glucose (mg/dL) 229 H (75-99) mg/dL Hemoglobin A1c 13.6 H (4.2-6.1) % CSF Glucose 134 H (40-70) mg/dL 11/20/16 11/20/16 11/20/16 Range/Units 16:35 19:09 23:18 POC Glucose (mg/dL) 227 H 251 H 335 H (75-99) mg/dL Hemoglobin A1c (4.2-6.1) % CSF Glucose (40-70) mg/dL 11/21/16 Range/Units 05:38 POC Glucose (mg/dL) 253 H (75-99) mg/dL Hemoglobin A1c (4.2-6.1) % CSF Glucose (40-70) mg/dL Microbiology - Last 24 Hours (Table) 11/20/16 15:00 CSF Gram Stain - Preliminary Cerebral Spinal Fluid CSF Culture - Preliminary Assessment and Plan (1) Multiple sclerosis Status: Acute Code(s): G35 - MULTIPLE SCLEROSIS (2) Systemic lupus erythematosus Status: Acute Code(s): M32.9 - SYSTEMIC LUPUS ERYTHEMATOSUS, UNSPECIFIED (3) Right leg weakness Status: Acute Code(s): R29.898 - [facility] SYMPTOMS AND SIGNS INVOLVING THE MUSCULOSKELETAL SYSTEM (4) DKA (diabetic ketoacidoses) Status: Acute (5) Diabetes mellitus type 1 Status: Acute Code(s): E10.9 - TYPE 1 DIABETES MELLITUS WITHOUT COMPLICATIONS (6) PTSD (post-traumatic stress disorder) Status: Acute Code(s): F43.10 - POST-TRAUMATIC STRESS DISORDER, UNSPECIFIED Plan: This patient is a 41-year-old female who was admitted to hospital yesterday with multiple symptoms and complaints. She has a known history of systemic lupus. She is [facility]. She is also recently told that she may have multiple sclerosis. This has not been evaluated other than an MRI of the brain. This was done 3 months ago and [facility] and we are awaiting to review this report. She did undergo a lumbar puncture today for further evaluation for MS. This MS panel has been sent and will be needing follow-up for more definitive diagnosis of MS. Rheumatology has been consulted for further evaluation of her history of lupus. Patient was apparently told by her architectural administrative assistant in [place] that she does not meet criteria for lupus. We will await further input from Dr. Mack in this regard. We are also awaiting consultation from Dr. Marcelo for further management of her uncontrolled diabetes mellitus. She has been weaned off the insulin drip. Her hemoglobin A1c is 13.6. We will await further recommendations from Dr. Marcelo regarding her diabetes mellitus. We have consulted PT /OT to further evaluate the patient. She will likely need subacute rehab at the time of discharge. Her spinal fluid results will not be available for at least 10 days. We would recommend plans for evaluation of transfer of this patient to subacute rehab due to her lower extremity weakness. Continue current treatment plans. Her overall prognosis at this time remains guarded.
[2016-11-21 16:24] LABS: Glucose,Whole Blood 175 mg/dL (75-99)
[2016-11-21] MEDS: KETOROLAC 30 MG/ML 1 ML VIAL IVP PRN (16:26)
--- NOTE | 2016-11-21 16:45 | P.PN ---
Subjective 41 yr old type 1 diabteic comes into the hospital with gen. weakness and uncontrolled DM. Pt apparently used to use a pump, however, due to lack of supplies pt stopped using her pump and was started on long acting insulin in the recent times Pt states that she was told that she has NANCY titers that are positive with speckles appearance and DsDNA that was positive. States that she gets joint pain in her hands, Mainly MIP also notes a Butterfly rash on her face worsened with sunlight. However, pt was seen by a physician at [facility] and was told she does not meet criteria. Pt states that she has distal weakness, and this is from MS from MRI obtained at [facility] . Pt currently states that she keeps forgetting to take her insulin intermittently She is 100% service connected States to be feeling slightly better at this time However is anxious to get a diagnosis. 11/21/16 pt has been off her insulin pump for 3 yrs now Glucose levels more appropriate tearful states that she has a lot going on at home including a divorce - Constitutional General appearance: no acute distress - EENT Eyes: EOMI, PERRLA - Neck Neck: normal ROM Thyroid: bilateral: normal size - Respiratory Respiratory: bilateral: CTA, negative: dullness, rales, rhonchi - Cardiovascular Rhythm: regular Heart sounds: normal: S1, S2 Abnormal Heart Sounds: no systolic murmur - Gastrointestinal General gastrointestinal: normal bowel sounds, no organomegaly, soft - Neurologic Neurologic: CNII-XII intact (distal weakness in lower ext. bilaterally) more predominant on the right side however later was noted to ambulate with minimal difficulty out in the hallway - Psychiatric Psychiatric: A&O x's 3 Objective - Vital Signs Vital signs: Vital Signs Temp 97.8 F 11/21/16 12:00 Pulse 103 H 11/21/16 15:30 Resp 18 11/21/16 15:30 BP 125/60 11/21/16 15:27 Pulse Ox 100 11/21/16 15:27 Intake & Output 11/20/16 11/21/16 11/21/16 18:59 06:59 18:59 Intake Total 480 500 Output Total 350 Balance 480 150 Weight 63.4 kg 63.3 kg 63.3 kg Intake: Oral 480 500 Output: Urine 350 Other: # Voids 1 - Labs CBC & Chem 7: 11/20/16 02:52 11/20/16 06:08 Labs: Abnormal Lab Results - Last 24 Hours (Table) 11/20/16 11/20/16 11/20/16 Range/Units 06:08 19:09 23:18 POC Glucose (mg/dL) 251 H 335 H (75-99) mg/dL Iron 21 L (37-170) ug/dL % Saturation 6.3 L (20-50) % 11/21/16 11/21/16 11/21/16 Range/Units 05:38 11:25 16:21 POC Glucose (mg/dL) 253 H 178 H 175 H (75-99) mg/dL Iron (37-170) ug/dL % Saturation (20-50) % Microbiology - Last 24 Hours (Table) 11/20/16 15:00 CSF Gram Stain - Preliminary Cerebral Spinal Fluid CSF Culture - Preliminary Assessment and Plan Plan: 1. DKA resolved 2. Bilateral lower ext. weakness , unknown underlying etiology 3. DM type 1 poorly controlled 4. HTN 5. Anxiety and PTSD?? 6. Peripheral neuropathy PLan glucose levels appropriate Continue serological workup doubt pt would meed criteria for SLE will obtain a MRI l spine to rule out radiculpathy physicial exam is inconsistent pt is also stressed with her medical issues and home situation likely dc home jose antonio can followup with Dr Meyer for csf results DVT prophylaxis.
[2016-11-21] MEDS: ZOLPIDEM 10 MG TAB PO SCH (20:43)
[2016-11-21 20:57] LABS: Glucose,Whole Blood 117 mg/dL (75-99)
[2016-11-21] MEDS: INSULIN GLARGINE 100 UNIT/ML 10 ML VIAL SQ SCH (21:08)
[2016-11-22] MEDS: MORPHINE SULFATE 4 MG/ML SYRINGE IVP SCH ×4 (00:34→13:32)
[2016-11-22] MEDS: SODIUM CHLORIDE 0.9% 1,000 ML IV SCH (03:10)
[2016-11-22 03:12] VITALS: RESP 16
[2016-11-22] MEDS: KETOROLAC 30 MG/ML 1 ML VIAL IVP PRN ×2 (06:25→14:19)
[2016-11-22] MEDS: LORazepam 2 MG/ML SYRINGE IV PRN (06:25)
[2016-11-22 06:48] LABS: Glucose,Whole Blood 308 mg/dL (75-99)
[2016-11-22] MEDS: INSULIN LISPRO (humaLOG) 300 UNIT/3 ML VIAL SQ SCH ×4 (06:58→13:36)
[2016-11-22] MEDS: GABAPENTIN 300 MG CAP PO SCH (08:26)
[2016-11-22 08:38] VITALS: TEMP 98
[2016-11-22] MEDS: ALPRAZolam 0.5 MG TAB PO SCH ×2 (08:39→13:39)
[2016-11-22] MEDS ORDERED: LORazepam 2 MG/ML SYRINGE IV STA (10:15)
--- NOTE | 2016-11-22 11:26 | P.DS ---
Providers Date of admission: 11/19/16 19:39 Attending physician: Mandie Caruso Consults: 11/19/16 19:42 Consult Physician Urgent Consulting Provider: Sabi Meyer Consult Reason/Comments: right leg weakness, hx of MS Do you want consulting provider notified?: Yes 11/20/16 07:00 Consult Anesthesia Urgent Consulting Provider: Anesthesia,Services Consult Reason/Comments: Lumbar Puncture to rule out Multiple Sclerosis. Consult Physician Urgent Consulting Provider: Katie Mack Consult Reason/Comments: History of Lupus for evaltion and treatment. Do you want consulting provider notified?: Yes Primary care physician: [facility] Course: 41 yr old type 1 diabteic comes into the hospital with gen. weakness and uncontrolled DM. Pt apparently used to use a pump, however, due to lack of supplies pt stopped using her pump and was started on long acting insulin in the recent times Pt states that she was told that she has NANCY titers that are positive with speckles appearance and DsDNA that was positive. States that she gets joint pain in her hands, Mainly MIP also notes a Butterfly rash on her face worsened with sunlight. However, pt was seen by a physician at [facility] and was told she does not meet criteria. Pt states that she has distal weakness, and this is from MS from MRI obtained at [facility] . Pt currently states that she keeps forgetting to take her insulin intermittently She is 100% service connected States to be feeling slightly better at this time However is anxious to get a diagnosis. 11/21/16 pt has been off her insulin pump for 3 yrs now Glucose levels more appropriate tearful states that she has a lot going on at home including a divorce - Constitutional General appearance: no acute distress - EENT Eyes: EOMI, PERRLA - Neck Neck: normal ROM Thyroid: bilateral: normal size - Respiratory Respiratory: bilateral: CTA, negative: dullness, rales, rhonchi - Cardiovascular Rhythm: regular Heart sounds: normal: S1, S2 Abnormal Heart Sounds: no systolic murmur - Gastrointestinal General gastrointestinal: normal bowel sounds, no organomegaly, soft - Neurologic Neurologic: CNII-XII intact (distal weakness in lower ext. bilaterally) more predominant on the right side however later was noted to ambulate with minimal difficulty out in the hallway - Psychiatric Psychiatric: A&O x's 3 Assessment and Plan Plan: 1. DKA resolved 2. Bilateral lower ext. weakness , unknown underlying etiology 3. DM type 1 poorly controlled 4. HTN 5. Anxiety and PTSD?? 6. Peripheral neuropathy 7. Severe iron deficiency anemia Glucose levels are erratic however patient is a brittle diabetic hence will continue with 35 units and patient does carb count with 8 g of carbohydrates for 1 unit of pre-meal insulin Patient's only new medication is Feosol 325 mg by mouth 3 times a day Patient is recommended to follow with Dr. Horn #14 review of dsDNA and NANCY with reflux titers MRI of the L-spine results I highly doubt patient would meet criteria for systemic lupus erythematosus. Does not have for organ system even if dsDNA is positive Right lower extremity weakness appears to be inconsistent on repeated physical exams Patient Condition at Discharge: Serious Plan - Discharge Summary New Discharge Prescriptions: New Ferrous Sulfate [Feosol] 325 mg PO TID #90 tab Continue metFORMIN HCL 1,000 mg PO BID Gabapentin [Neurontin] 900 mg PO BID Insulin Detemir [Levemir] 35 unit SQ HS Omeprazole 40 mg PO AC-BRKFST oxyCODONE-APAP 10-325MG [Percocet 10-325 mg] 1 tab PO QID ALPRAZolam [Xanax] 1 mg PO QID Zolpidem [Ambien] 10 mg PO HS Cyanocobalamin [Vitamin B-12 Injection] 1,000 mcg SQ QMONTH Butalb/APAP/Caff 50-325-40Mg [Fioricet 50-325-40] 1 tab PO Q4H PRN PRN Reason: Headache oxyCODONE-APAP 10-325MG [Percocet 10-325 mg] 1 tab PO HS PRN PRN Reason: Pain Insulin Aspart [NovoLOG Flexpen] See Protocol SQ AC-TID DULoxetine HCL 80 mg PO DAILY Discharge Medication List metFORMIN HCL 1,000 mg PO BID 12/26/15 [History] Gabapentin [Neurontin] 900 mg PO BID 04/19/16 [History] Insulin Detemir [Levemir] 35 unit SQ HS 04/19/16 [History] Omeprazole 40 mg PO AC-BRKFST 04/30/16 [History] oxyCODONE-APAP 10-325MG [Percocet 10-325 mg] 1 tab PO QID 04/30/16 [History] ALPRAZolam [Xanax] 1 mg PO QID 07/04/16 [History] Zolpidem [Ambien] 10 mg PO HS 07/16/16 [History] Butalb/APAP/Caff 50-325-40Mg [Fioricet 50-325-40] 1 tab PO Q4H PRN 11/19/16 [ History] Cyanocobalamin [Vitamin B-12 Injection] 1,000 mcg SQ QMONTH 11/19/16 [History] DULoxetine HCL 80 mg PO DAILY 11/19/16 [History] Insulin Aspart [NovoLOG Flexpen] See Protocol SQ AC-TID 11/19/16 [History] oxyCODONE-APAP 10-325MG [Percocet 10-325 mg] 1 tab PO HS PRN 11/19/16 [History] Ferrous Sulfate [Feosol] 325 mg PO TID #90 tab 11/22/16 [Rx] Follow up Appointment(s)/Referral(s): Padmini Meyer MD [STAFF PHYSICIAN] - 1 Week Pepito Horn MD [Primary Care Provider] - 1-2 days Discharge Disposition: HOME SELF-CARE
--- NOTE | 2016-11-22 13:18 | MR ---
EXAMINATION TYPE: MR lumbar spine wo/w con DATE OF EXAM: 11/22/2016 COMPARISON: NONE HISTORY: radiculopathy per order. TECHNIQUE: Multiplanar, multisequence images of the lumbar spine is performed without and with IV contrast, util izing 13 mL intravenous MultiHance FINDINGS: Sagittal images of the lumbar spine show vertebral body heights and alignment to appear sat isfactory. There is well corticated T1 and T2 hypointense oblique line through anterior superior L4 e ndplate felt to reflect limbus vertebra. The intervertebral discs demonstrate normal heights and hydr ation. No significant posterior disc herniations are seen on sagittal images. The conus medullaris is normal in position and signal ending at inferior L1 level. The bone marrow signal intensity is with in normal limits. Occasional small hemangioma is present, for reference right inferior L3 lesion is n oted on sagittal image 9. No suspicious postcontrast enhancement is seen. No significant spurring is seen. There is partial visualization of normal-appearing anteverted uterus. On survey image there is 5.1 cm oval well-circumscribed lesion left midabdomen lateral wall image 3 s eries 201 consider lipoma or other subcutaneous etiology. Axial images show the T12-L1, L1-L2, and L2-L3 levels all to appear within normal limits. Axial images at L3-L4 show mild broad disc bulge and facet degenerative changes with minimal effaceme nt anterior an posterior lateral thecal sac, bilateral neural foramina are patent on axial image 14. Axial images at L4-L5 level show mild broad disc bulge and mild facet degenerative changes minimally effacing anterior thecal sac on axial image 10. Bilateral neural foramina remain patent. Axial images at L5-S1 level show mild facet degenerative changes bilaterally. Spinal canal is preserv ed. Bilateral neural foramina are patent. Within the central endometrium there is 1.1 cm lesion slightly hypointense to adjacent junctional zon e in the endometrial canal on axial image 4, differential includes pole, endometrial polyp, or submucosal fibroid. Clinical correlation advised to determine need for pelvic ultrasound follow-up. N ormal-appearing follicles are seen in visualized portion of both ovaries. IMPRESSION: 1. Some mild multilevel degenerative changes in the mid to lower lumbar spine as detailed above. No s ignificant finding is seen to account for patient's radiculopathy type symptoms. 2. Attention to left mid abdomen lateral subcutaneous area, subcutaneous lesion such as lipoma suspec jaron. Need to further investigate with imaging should be based on clinical correlation. 3. There is 1.1 cm lesion in the anterior endometrial canal as detailed above, clinical correlation a dvised to help determine need for further investigation by pelvic ultrasound as differential includes pole, endometrial polyp, or submucosal fibroid.
[2016-11-22 13:30] LABS: Glucose,Whole Blood 147 mg/dL (75-99)
[2016-11-22 13:56] VITALS: BP 140/72; PULSE 110
[2016-11-22 15:08] LABS: Immunoglobulin G 766 mg/dL (700 - 1600)
--- NOTE | 2016-11-22 19:40 | P.PN ---
Subjective This patient is a 41-year-old female who was admitted yesterday through the emergency room with symptoms of right leg weakness and generalized paresthesias. Patient apparently had an MRI of the brain done at [facility] 3 months ago which revealed possibility of demyelinating disease and MS. She is also been diagnosed as having systemic lupus by leaf conditioner at the [facility] in [place]. She is not on any specific treatment. We have requested a rheumatology consultation for verification of her diagnosis of systemic lupus. The patient underwent lumbar puncture today for further evaluation of MS. Anesthesia performed the LP today. Initial results indicated 0 WBC be seeing and 0 RBC. CSF glucose was 134 and elevated and CSF protein was 56. We will await the EMS panel for further assessment for possibility of MS in this patient. This will take 10-12 days to receive. We have requested the MRI report to be sent from [facility] for review. This was just done 3 months ago of the brain. Patient states that she has continued to have generalized weakness right leg more than the left in the lower extremities. She describes symptoms of generalized weakness as well. She is also being treated for diabetic ketoacidosis. She was admitted with uncontrolled hyperglycemia. She was placed on insulin drip which apparently has been discontinued. We're waiting formal endocrinology consultation with Dr. Marcelo. Patient is not a candidate for IV steroids at this time until she is evaluated by endocrinology. Her hemoglobin A1c is 13.6. Rheumatoid factor was ordered today and is less than 9.0. We will await further recommendations from Dr. Mack regarding further rheumatological workup for the patient. Patient apparently was told by her leaf conditioner in [place] that her test results were not conclusive for diagnosis of lupus. We will need further input from Dr. Mack in regards to her current working diagnosis. Steroid therapy would cause her blood sugars to remain uncontrolled. Her definitive diagnosis of MS is also uncertain at this time. She did complete her spinal fluid examination and we will need to await the final result of her MS panel. Patient may benefit from PT/OT evaluation and possible transfer to subacute rehab. Patient was sent for MRI of the lumbar spine today. MRI reveals multiple level degenerative changes with no significant disc herniation or radicular findings. Patient is being discharged home today. Apparently she does not have a diagnosis of lupus at this time. She should follow-up with her primary care physician for other test results including her MS panel. She should follow-up with the [facility] for further management. We will continue close neurological follow-up for this patient during this admission. Objective - Vital Signs Vital signs: Vital Signs Temp 98 F 11/22/16 08:30 Pulse 109 H 11/22/16 08:30 Resp 16 11/22/16 08:30 BP 113/60 11/22/16 08:30 Pulse Ox 97 11/22/16 08:30 Intake & Output 11/21/16 11/22/16 11/22/16 18:59 06:59 18:59 Intake Total 477 Balance 477 Weight 63.3 kg 64.1 kg Intake: Oral 477 Other: # Voids 1 - Exam Physical examination: PHYSICAL EXAMINATION: Patient is resting comfortably in bed. VITAL SIGNS: Blood pressure is [140/72]. Heart rate is [110]. Respiration is [16 ]. Temperature is [98.0]. HEENT: Head is atraumatic, neck is supple, there were no carotid bruits. CHEST: Lungs are clear to auscultation and percussion. CARDIAC: S1, S2 normal rate and rhythm. There is no murmur. ABDOMEN: Soft and nontender. Bowel sounds are present. EXTREMITIES: There is no pedal edema. Peripheral pulses are present. Neurological examination: Patient's neurological examination is unchanged from yesterday. She continues to have right lower extremity weakness. - Labs CBC & Chem 7: 11/20/16 02:52 11/20/16 06:08 Labs: Abnormal Lab Results - Last 24 Hours (Table) 11/20/16 11/21/16 11/21/16 Range/Units 06:08 11:25 16:21 POC Glucose (mg/dL) 178 H 175 H (75-99) mg/dL Iron 21 L (37-170) ug/dL % Saturation 6.3 L (20-50) % 11/21/16 11/22/16 Range/Units 20:55 06:43 POC Glucose (mg/dL) 117 H 308 H (75-99) mg/dL Iron (37-170) ug/dL % Saturation (20-50) % Microbiology - Last 24 Hours (Table) 11/20/16 15:00 CSF Gram Stain - Preliminary Cerebral Spinal Fluid CSF Culture - Preliminary Assessment and Plan (1) Multiple sclerosis Status: Acute Code(s): G35 - MULTIPLE SCLEROSIS (2) Systemic lupus erythematosus Status: Acute Code(s): M32.9 - SYSTEMIC LUPUS ERYTHEMATOSUS, UNSPECIFIED (3) Right leg weakness Status: Acute Code(s): R29.898 - [facility] SYMPTOMS AND SIGNS INVOLVING THE MUSCULOSKELETAL SYSTEM (4) DKA (diabetic ketoacidoses) Status: Acute (5) Diabetes mellitus type 1 Status: Acute Code(s): E10.9 - TYPE 1 DIABETES MELLITUS WITHOUT COMPLICATIONS (6) PTSD (post-traumatic stress disorder) Status: Acute Code(s): F43.10 - POST-TRAUMATIC STRESS DISORDER, UNSPECIFIED Plan: This patient is a 41-year-old female who was admitted to hospital yesterday with multiple symptoms and complaints. She has a known history of systemic lupus. She is followed by a leaf conditioner at the [facility]. She is also recently told that she may have multiple sclerosis. This has not been evaluated other than an MRI of the brain. This was done 3 months ago and [facility] and we are awaiting to review this report. She did undergo a lumbar puncture today for further evaluation for MS. This MS panel has been sent and will be needing follow-up for more definitive diagnosis of MS. Rheumatology has been consulted for further evaluation of her history of lupus. Patient was apparently told by her leaf conditioner in [place] that she does not meet criteria for lupus. We will await further input from Dr. Mack in this regard. We are also awaiting consultation from Dr. Marcelo for further management of her uncontrolled diabetes mellitus. She has been weaned off the insulin drip. Her hemoglobin A1c is 13.6. We will await further recommendations from Dr. Marcelo regarding her diabetes mellitus. We have consulted PT /OT to further evaluate the patient. She will likely need subacute rehab at the time of discharge. Her spinal fluid results will not be available for at least 10 days. We would recommend plans for evaluation of transfer of this patient to subacute rehab due to her lower extremity weakness. Patient underwent MRI of the lumbar spine today. Results are as noted above. MRI is negative for any acute findings. Patient is being considered for discharge home later today. She should follow up with the [facility] in [place]. She should contact her primary care physician for results of her spinal fluid analysis as well. Patient has not been seen by either Dr. Marcelo or Dr. Mack as of today. She should follow-up with both specialists in the outpatient clinic. Continue current treatment plans. Her overall prognosis at this time remains guarded.
--- NOTE | 2016-11-23 06:08 | EEG ---
DATE OF SERVICE: 11/22/2016 ELECTROENCEPHALOGRAPHIC EXAMINATION REPORT INDICATION FOR EXAMINATION: This patient is a 41-year-old female admitted to hospital with lower extremity weakness. Patient with diagnosis of lupus and possible multiple sclerosis. Age: 41. EEG FINDINGS: A routine 21 channel awake, digital EEG recording was accomplished utilizing the 10-20 international system with bipolar and referential montages. The background activity in the most alert, resting state consists of a low to medium amplitude, fairly well developed and well sustained 6-7 Hz activity over the posterior head regions. This posterior rhythm attenuates to eye opening. There is a small amount of low amplitude 18-20 Hz beta activity seen maximally over the anterior head regions. Muscle and movement artifact was observed on a few occasions during the tracing. Hyperventilation was not performed. Photic stimulation at flash frequencies of 2 -30 Hz produced a minimal occipital driving response. No epileptiform discharges were seen. IMPRESSION: This EEG is mildly abnormal in diffuse fashion due to slight slowing of the EEG background. The EEG failed to reveal any focal, lateralized or epileptiform abnormalities. Clinical correlation is recommended. IRINAD
[2016-11-23 10:09] LABS: Lyme IgG/IgM Interp NEGATIVE (NEGATIVE)
[2016-11-24 15:49] LABS: Lyme Specimen Source Not Provided
== END 2016-11-22 15:39 | disposition home or self-care (01) | DRG 639 ==
LOC: EC 16:44 → 6SEL 19:39
PROVIDERS: ADMIT Internal Medicine; ATTEND Internal Medicine
PROC: 009U3ZX Drainage of Spinal Canal, Percutaneous Approach, Diagnostic (ICD-10-PCS; principal; 2016-11-20 13:10)
DX: E10.10 Type 1 diabetes mellitus with ketoacidosis without coma (principal); E10.42 Type 1 diabetes mellitus with diabetic polyneuropathy; I10 Essential (primary) hypertension; Z79.84 Long term (current) use of oral hypoglycemic drugs; K21.9 Gastro-esophageal reflux disease without esophagitis; F43.10 Post-traumatic stress disorder, unspecified; K64.9 Unspecified hemorrhoids; M19.91 Primary osteoarthritis, unspecified site; D50.9 Iron deficiency anemia, unspecified; F32.9 Major depressive disorder, single episode, unspecified; Z79.4 Long term (current) use of insulin; Z79.891 Long term (current) use of opiate analgesic; Z79.899 Other long term (current) drug therapy; Z87.820 Personal history of traumatic brain injury; Z87.891 Personal history of nicotine dependence; Z88.0 Allergy status to penicillin; Z88.1 Allergy status to other antibiotic agents; Z91.030 Bee allergy status
CPT/HCPCS: 36415; 62270; 70450; 72158; 80048; 80051; 80053; 80074; 81001; 81025; 82009; 82040; 82042; 82150; 82565; 82728; 82784; 82945; 82947; 83036; 83540; 83550; 83690; 83735; 83916; 84100; 84157; 84443; 84520; 85025; 86038; 86140; 86225; 86431; 86618; 87070; 87205; 87476; 89050; 95819; 96361; 96374; 96375; 99284